=== PATIENT | female | born 1975 | race Caucasian/White ===

== ENCOUNTER 2024-10-25 08:37 | Outpatient (AMB) | payer OTHER, SELFPAY ==
--- OUTSIDE RECORDS SUMMARY | 2020-03-11 04:55 | XMS_ITS | Continuity of Care Document ---
Author Organization [facility] Address [address] [place] [address] Phone Care Team Providers Care Sql Server Bi Developer Name Role Phone No Information Unavailable Unavailable Medications Medication Instructions Dosage Effective Dates (start - stop) Status Comments Zithromax 250 mg Tab Use as directed. - Active Paxil 10 mg Tab Take one tablet by mouth daily. - Active Nasacort AQ 55 mcg Nasal [place] Aerosol Inhale two times via nostril daily - Active VENTOLIN 90MCGAEROSOL Inhale two times b y mouth every six hours - Active Claritin 10 mg Tab Take one tablet by mouth as needed. - Active Advance Directives Directive Yes / No Effective Date File Name No Information Encounters Encounter Description Practice Location Reason(s) For Visit Diagnoses Date Provider Providers Copied on Encounter Medical [facility], [address], [place], [place], [id number] , tel: [phone] No Information 0 No Information Medical [facility], [address], [place], [place], [id number] , tel: [phone] [place] [facility] No Information 4 V[address]quez Mor. [address], [place], [place], [id number], [place]. tel:[phone] Medical [facility], [address], [place], [place], [id number] , tel: [phone] [place] [facility] SINUSITIS, MAXILLARY, ACUTE 3 V[address]quez Mor. [address], [place], [place], [id number], [place]. tel:[phone] Medical [facility], [address], [place], [place], [id number] , [place] tel: [phone] [facility] ASTHMA, INTRINSICALLERGIC RHINITIS DUE TO POLLEN [address] 3 Kathie Juares. [address] [facility] [address], [place], [place], [id number], [place]. tel:[phone] Family History Family Member Type Diagnosis Age At Onset No Information Payers Payer name Insurance type Covered libertarian ID Authoriza tion(s) No Information Social History [...]
--- NOTE | 2024-10-25 08:39 | A.OFFPC_ITS ---
Vital Signs 10/25/24 08:48 Height 6 ft 1 in Weight 226 lb BMI 29.8 BP 104/67 Blood Pressure Location Rt brachial Position Sitting Respiration 12 Pulse 65 Pulse Source Pulse Oximeter Temp 97.2 F Temp Source Oral Pulse Oximetry (%) 100 Oxygen Delivery Method Room Air Intake Visit Reasons: Medication refill Intake Note: New patient to establish care and also patient needs refill on meds. Health Physics Technician Required: No Allergies No Known Allergies Allergy (Verified 10/25/24 08:40) Medication List - Last Reviewed 10/25/24 by Jewels Gipson MA amitriptyline 25 mg PO BEDTIME atomoxetine 100 mg PO QAM budesonide-formoterol 80-4.5 mcg/actuation 2 puffs inhalation ONCE PRN estradiol (Lyllana) 1 patch topical 2XW nebivolol 20 mg PO DAILY nebivolol 20 mg PO DAILY progesterone micronized 100 mg PO BEDTIME sumatriptan succinate take 1 tab at onset of headache; if no relief, may repeat 1 tab after at least 2 hrs; max = 2 tabs/24 hrs PO trazodone 50 mg PO BEDTIME tretinoin 0.1% 1 appl topical BEDTIME Tobacco use date assessed: 10/25/24 Dental Screening Dental Screen Date: 10/25/24 Did you have a dental visit in the last 12 months?: Yes Did you have a dental problem in the last 6 months where you did not have access to dental care?: No Was dental information given to patient?: Patient has dentist HPI HPI Comments History of Present Illness Details 49 y/o F with migraines, HTN, Asthma, AD D, insomnia, perimenopause, IBS, perimenopause Social: , 1 child son age 16 Family history: melanoma (mother), polyps (father); Health Maintenance Colon referred to [facility] today Mammo DEXA Pap referred to [facility] FIELD SERVICE SUPERVISOR today [facility] FIELD SERVICE SUPERVISOR Here today to [facility], No records. [facility] Asthma well controlled. Exercise induced. ADD on Staterra well controlled Migraines hormone related; better in perimenopause. When has periods (current, last one 03/2024), uses Sumatriptin with good relief. Insomnia uses trazadone IBS - using amitriptyline to control Perimenopause - on HRT. Using online MD for this. + improvement in Sx. At 10am sweats buckets w/o hot flashes, lasts 1 hour, then stops. HRT did not help or change sx. Wonders about thyroid. Worried about Raynauds, as in winter and cold sz, toes and fingers turn white and blue, tip of nose too; tingling; uses heat, hats, etc. Worse in the last year. Admits to chronic poor circulation, active w/ Cards, states vascular testing done of BLE and states normal. She takes Nebivolol for this. 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 When stands becomes tachy and feels like going to black out. + hypermobility In between fingers on R hand 06/2024 was lifting something overhead and felt a pop between index and middle finger, in her hand, she developed bruising, swelling and pain in this area. While the sx have improved she cont w/ swelling and discoloration in this area. R hand dominant Always has swollen hands all of the time, this is new. Unrelated to this injury. Past esophageal yeast infection treated with long-term fluconazole. Review of Systems - Cardiovascular: Reports fast heart rat e; Denies heart attacks. - Respiratory: Reports asthma with exert ion; Denies frequent asthma attacks. - Neurological: Reports migraines, now r educed; Reports dizziness upon standing. - Musculoskeletal: Reports joint hypermo bility, recurrent swelling, and pain in the hand; Denies major joint dislocations. - Gastrointestinal: Reports IBS; Denies current significant abdominal pain. - Endocrine: Reports irregular sweating episodes. - Dermatologic: Reports skin smoothness; Denies recent rashes. - Hematologic/Lymphatic: Denies known an emia. Physical Exam General: Well developed, well nourished, in no acute distress. Appears stated age. Marfanoid habitus Head: Normocephalic, atraumatic. Eyes: Pupils are equal, round and reactive to light and accommodation. Conjunctivae are clear. Lungs: Clear to auscultation bilaterally. No rales, rhonchi or wheeze noted. Good air flow in all hester. Heart: Regular rate and rhythm. No murmurs, click, rubs or gallops are noted. Tachycardic w/ sitting to standing Musculoskeletal: R hand neurovasc intact has swell Noted hypermobility in joints. Pulses: Peripheral pulses are equal and palpable bilaterally. Feet dusky w/ dependence. Extremities: No clubbing, cyanosis nor edema is noted. Psych: Mood and affect appropriate. Skin: Diaphoretic, Smooth, doughy Results: Pending Discussion Notes I discussed the likely presence of ADHD and confirmed ongoing Strattera therapy. For asthma management, the continuation of current inhaler therapy was verified. The patient?s history of migraine headaches was assessed, noting reduction during non-menopause periods, with ongoing use of sumatriptan as needed. For miguelina-menopausal symptoms, plans include confirming thyroid function due to persistent sweating. Connective tissue disoder was considered; a referral for evaluation was discussed given symptoms. Concerning circulation issues and potential orthostatic tachycardia, I recommended a follow-up with specialists. Plans for Raynaud's investigation were made. My hand examination prompted an x- ray referral and possible hand specialist consultation. Routine dermatological and gastroenterological surveillance were confirmed, given family history. All current medications were reconciled, and referrals for the continuity of p sychiatric and dermatological care were arranged. Assessment and Plan 1. ADHD - Continue Strattera; psychiatry referra l. 2. Asthma - Maintain inhaler regimen. 3. Hypertension - Continue Nebivolol. 4. PeriMenopausal Symptoms - Thyroid assessment; continue HRT w/ on line MD made aware [facility] FIELD SERVICE SUPERVISOR Does not manage this. 5. R Hand Pain - X-ray; Hand specialist referral. Referrals placed as requested; med refills sent. Labs ordered. Get records for review. Patient Instructions - Continue taking all prescribed medicat ions as directed. - Schedule and attend specialist appoint ments for connective tissue evaluation, hand specialist consultation, and dermatology check-up. - Report any worsening of symptoms or ne w symptoms promptly. - Use patient portal for any questions o r concerns between visits. RTO 8-12 weeks to cont to est care/ fu Consent Patient was informed and verbally consented to the use of an ambient scribe for clinic note documentation during this visit. Total time spent caring for the patient today was 60 minutes. This includes time spent before the visit reviewing the chart, time spent during the visit, and time spent after the visit on documentation, reviewing laboratory results, diagnostic imaging, medications, performing a medically necessary evaluation, counseling on diagnoses, care coordination, ordering appropriate tests, ordering appropriate medications, review of tests performed by other providers, reporting test results with the patient, communication with other healthcare providers. [facility] Medical History (Updated 10/25/24 @ 15:05 by Samia Park [facility]) Hx of mammogram (~2023) IBS (irritable bowel syndrome) ADD (attention deficit disorder) Migraines Asthma Surgical History (Updated 10/25/24 @ 08:53 by Jewels Gipson MA) Hx of colonoscopy (~2022) Hx of appendectomy Family History (Updated 10/25/24 @ 08:55 by Jewels Gipson MA) Mother Asthma Cardiovascular disease Thyroid disorder Skin cancer (melanoma) Substance abuse Father HTN (hypertension) Lung cancer Social History (Updated 10/25/24 @ 08:51 by Jewels Gipson MA) Household Members: Spouse and Children Housing: House Are you a primary customer care consultant to a significant other at home: Yes Do you presently have visiting nurse or other home services: No Alcohol intake: never Patient Tobacco Use Status: Never used Tobacco e-Cigarette/Vaping Use: Never Used Second Hand Smoke Exposure: No Current occupational status: employed 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 1. Little interest or pleasure in doing things: not at all 2. Feeling down, depressed, or hopeless: not at all 3. Trouble falling or staying asleep, or sleeping too much: not at all 4. Feeling tired or having little energy: not at all 5. Poor appetite or overeating: not at all 6. Feeling bad about yourself - or that you are a failure or have let yourself or your family down: not at all 7. Trouble concentrating on things, such as reading the newspaper or watching television: not at all 8. Moving or speaking so slowly that other people could have noticed. Or the opposite - being so fidgety or restless that you have been moving around a lot more than usual: not at all 9. Thoughts that you would be better off or of hurting yourself in some way: not at all Total score: 0 Depression Screening Interpretation: Negative Depression Screening Done: Yes 94113 - PHQ-9 Billing: Yes Source: Developed by Drs. Ever Cherry, Maria Fernanda Maurer, Levy Sauceda and colleagues, with an educational ambar from [employer]. Thrive Questionnaire Date Thrive assessed: 10/25/24 I am a: Patient What is your living situation today?: I have a steady place to live Within the past 12 months, did the food you bought not last and you didn't have the money to get more?: Never true Within the past 12 months, did you worry whether your food would run out before you got money to buy more?: Never true Do you have trouble paying for medicines?: No Do you have trouble getting transportation to medical appointments?: No Do you have trouble paying your heating and electricity bill?: No Do you have trouble taking care of your child, family member or friend?: No Do you have trouble with day-to-day activities such as bathing, preparing meals, shopping, managing finances, etc.?: No Are you currently unemployed and looking for a job?: No Are you interested in more education?: No Please select the resources that you would like help with: None Currently or been in a relationship where the following occur: No concerns reported THRIVE Score: 0 AUDIT C Alcohol Use Questionnaire (AUDIT-C) 1. How often do you have a drink containing alcohol?: Never 3. How often do you have six or more drinks on one occasion?: Never Total Score: 0 Score Reviewed/Action Taken: Yes THOMAS-7 AMB Questionnaire THOMAS-7 Date THOMAS - 7 assessed: 10/25/24 Feeling nervous, anxious, or on edge: 0 = Not at all Not being able to stop or control worryin = Not at all Worrying too much about different things: 0 = Not at all Trouble relaxin = Not at all Being so restless that it is hard to sit still: 0 = Not at all Becoming easily annoyed or irritable: 0 = Not at all Feeling afraid as if something awful might happen: 0 = Not at all Total THOMAS-7 score (0-4 normal; 5-9 mild; 10-14 moderate; 15-21 severe): 0 Source: Developed by Maria Fernanda Regalado, Levy Sauceda and colleagues, with an educational ambar from [employer]. THOMAS-7 Assessment Billing THOMAS-7 Assessment Tool: THOMAS-7 Assessment 80443 ACT Questionnaire In the past 4 weeks, how much of the time did your asthma keep you from getting as much done at work, school or at home?: None of the time During the past 4 weeks, how often have you had shortness of breath?: Not at all During the past 4 weeks, how often did your asthma symptoms wake you up at night or earlier than usual in the morning?: Not at all During the past 4 weeks, how often have you had to use your rescue inhaler or nebulizer medication?: Not at all How would you rate your asthma control during the past 4 weeks?: Completely controlled ACT Interpretation: Negative Score: 25 Physical exam (Primary Care) Vital Signs: Last Vital Signs Temp 97.2 F 10/25/24 08:48 Pulse 65 10/25/24 08:48 Resp 12 10/25/24 08:48 BP 104/67 10/25/24 08:48 Pulse Ox 100 10/25/24 08:48 Oxygen Delivery Method Room Air 10/25/24 08:48 BMI result Body Mass Index 29.8 Tobacco/Smoking Status: Tobacco use Status Tobacco use date assessed 10/25/24 10/25/24 08:42 Patient Tobacco Use Status Never used Tobacco 10/25/24 08:51 e-Cigarette/Vaping Use Never Used 10/25/24 08:51 PHQ-9: PHQ-9 Score PHQ-9: Total score 0 10/25/24 14:32 Depression Screening Interpretation: Negative Thrive Assessment: Date of Thrive Assessment Date Thrive assessed 10/25/24 10/25/24 08:42 Currently or been in a relationship where the following occur: No concerns reported Coding Level of Care Code New Pt Level 5 (06833) Complex EM visit Add On G2211 Diagnoses Encounter to establish care Z76.89 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 POTS (postural orthostatic tachycardia syndrome) G90.A Marfanoid habitus R29.91 Raynaud's phenomenon without gangrene I73.00 Raynaud?s-associated gangrene presence: without gangrene Tall stature R29.898 Laboratory exam ordered as part of routine general medical examination Z00.00 Attention or concentration deficit R41.840 Attention deficit type: attention or concentration deficit Family history of melanoma Z80.8 Irritable bowel syndrome with both constipation and diarrhea K58.2 Irritable bowel syndrome type: with both diarrhea and constipation Esophageal yeast infection B37.81 Tetanus, diphtheria, and acellular pertussis (Tdap) vaccination declined Z28.21 Swelling of right hand M79.89 Mild intermittent asthma in adult without complication J45.20 Additional Codes Asthma Control Questionnaire - ACT Interpretation: Negative ([id number]) THOMAS-7 Assessment Billing - THOMAS-7 Assessment Tool: THOMAS-7 Assessment 41894 ([id number]) PHQ-9 - 50482 - PHQ-9 Billing: Yes ([id number]) Assessment & Plan Assessment & Plan (1) Encounter to establish care: Code(s): Z76.89 - Persons encountering health services in other specified circumstances (2) Hypermobile joints: Code(s): M24.9 - Joint derangement, unspecified Category: Medical (3) POTS (postural orthostatic tachycardia syndrome): Code(s): G90.A - Postural orthostatic tachycardia syndrome [POTS] Category: Medical (4) Marfanoid habitus: Code(s): R29.91 - Unspecified symptoms and signs involving the musculoskeletal system Category: Medical (5) Raynaud's phenomenon: Code(s): I73.00 - Raynaud's syndrome without gangrene Category: Medical Qualifiers: Raynaud?s-associated gangrene presence: without gangrene Qualified Code(s): I73.00 - Raynaud's syndrome without gangrene (6) Tall stature: Code(s): R29.898 - Other symptoms and signs involving the musculoskeletal system Category: Medical (7) Laboratory exam ordered as part of routine general medical examination: Code(s): Z00.00 - Encounter for general adult medical examination without abnormal findings Category: Medical (8) ADD (attention deficit disorder): Code(s): F98.8 - Other specified behavioral and emotional disorders with onset usually occurring in childhood and adolescence Category: Medical Qualifiers: Attention deficit type: attention or concentration deficit Qualified Code(s): R41.840 - Attention and concentration deficit (9) Family history of melanoma: Code(s): Z80.8 - Family history of malignant neoplasm of other organs or systems Category: Medical (10) IBS (irritable bowel syndrome): Code(s): K58.9 - Irritable bowel syndrome, unspecified Category: Medical Qualifiers: Irritable bowel syndrome type: with both diarrhea and constipation Qualified Code(s): K58.2 - Mixed irritable bowel syndrome (11) Esophageal yeast infection: Code(s): B37.81 - Candidal esophagitis Category: Medical (12) Tetanus, diphtheria, and acellular pertussis (Tdap) vaccination declined: Code(s): Z28.21 - Immunization not carried out because of patient refusal Category: Medical (13) Swelling of right hand: Code(s): M79.89 - Other specified soft tissue disorders Category: Medical (14) Mild intermittent asthma in adult without complication: Code(s): J45.20 - Mild intermittent asthma, uncomplicated Category: Medical Plan . Orders: Orders Complete Blood Count no Diff Today Z00.00 - Encounter for general adult medical examination without abnormal findings Ferritin Today Z00.00 - Encounter for general adult medical examination without abnormal findings Hemoglobin A1c Today Z00.00 - Encounter for general adult medical examination without abnormal findings IRON PROFILE Today Z00.00 - Encounter for general adult medical examination without abnormal findings Microalbumin, Random (w Creat) Today Z00.00 - Encounter for general adult medical examination without abnormal findings TSH reflex Free T4 Today Z00.00 - Encounter for general adult medical examination without abnormal findings Vitamin B12 and Folate Today Z00.00 - Encounter for general adult medical examination without abnormal findings Comprehensive Met. Panel Today Z00.00 - Encounter for general adult medical examination without abnormal findings Lipid Panel Today Z00.00 - Encounter for general adult medical examination without abnormal findings Vitamin D 25-OH Total Today Z00.00 - Encounter for general adult medical examination without abnormal findings XR hand RT min 3V Today M79.89 - Other specified soft tissue disorders Referrals Hand Surgery Referral M79.89 - Other specified soft tissue disorders Rheumatology Referral G90.A - Postural orthostatic tachycardia syndrome [POTS], I73.00 - Raynaud's syndrome without gangrene, M24.9 - Joint derangement, unspecified, R29.898 - Other symptoms and signs involving the musculoskeletal system, R29.91 - Unspecified symptoms and signs involving the musculoskeletal system Psychiatry Referral F98.8 - Other specified behavioral and emotional disorders with onset usually occurring in childhood and adolescence Dermatology Referral Z80.8 - Family history of malignant neoplasm of other organs or systems Gastroenterology Referral B37.81 - Candidal esophagitis, K58.9 - Irritable bowel syndrome, unspecified, Z12.11 - Encounter for screening for malignant neoplasm of colon PACS ADMINISTRATOR Referral Z12.4 - Encounter for screening for malignant neoplasm of cervix Medications: New albuterol sulfate 90 mcg/actuation (Ventolin HFA) 2 puffs inhalation Q6H PRN 6.7 grams 2RF shortness of breath or wheezing amitriptyline 25 mg PO BEDTIME 90 tabs 2RF budesonide-formoterol 80-4.5 mcg/actuation 2 puffs inhalation ONCE 10.2 grams 12RF trazodone 50 mg PO BEDTIME 90 tabs 2RF atomoxetine 100 mg PO QAM 90 caps 2RF nebivolol 20 mg PO DAILY 90 tabs 2RF sumatriptan succinate take 1 tab at onset of headache; if no relief, may repeat 1 tab after at least 2 hrs; max = 2 tabs/24 hrs PO 9 tabs 12RF Patient Instructions: Walk-In Care (Urgent Care): We Make it Easy Walk-in for urgent medical issues such as: ? Seasonal Allergies ? Insect Bites ? Cough ? Diarrhea ? Acute Asthma Attacks ? Back, Knee or Joint Pain ? Ear Infection ? Fever without a Rash ? Headaches ? Nausea ? [place] Eye, Rash or Skin Irritation ? Sore Throat ? Sports Physicals ? Vomiting Most insurances are accepted. Patients do not need to be part of the [facility] to seek care at the walk-in clinic. Locations [facility] , [place] [address] ? [phone] [facility] [place] [facility] in [place] provides services to ages 18 and over. Open Thursday-Thursday: 8 a.m. to 5 p.m. and Thursday: 9 a.m. to 3 p.m.* *Hours may vary due to staffing availability. To confirm Walk-In Care hours in [place], please call [phone]. [address] [place] [address] ? [phone] [facility] [place] [facility] [place] provides services to ages 12 and over. Open Thursday-Thursday: 8 a.m. to 5 p.m. Hours may vary due to staffing availability. To confirm Walk-In Care hours in [place], please call [phone]. LABORATORY SERVICES: [facility] Lab ? Primary Location [address] [place] [address] Thursday through Thursday 6:00 AM ? 5:00 PM Thursday 7:00 AM ? 11:00 AM* [phone] The [facility] Lab is centrally located near the front entrance of the [facility] for easy outpatient access. Convenient parking is provided for outpatients. *Hours may vary due to staffing availability. To confirm Laboratory hours for any location, please call [phone]. Offsite Location For your convenience, we offer offsite laboratory draw stations at the following locations: [address] [place] [address] ? [address], [address] Thursday through Thursday 7:30 AM ? 1:00 PM* [phone] *Hours may vary due to staffing availability. To confirm Laboratory hours for any location, please call [phone]. [place] ? [address] Thursday through Thursday 6:00 AM ? 3:30 PM* Thursday 6:30 AM ? 3 PM* [phone] *Hours may vary due to staffing availability. To confirm Laboratory hours for any location, please call [phone] [place] [address] Thursday through Thursday 7:30 AM ? 4:00 PM* [phone] *Hours may vary due to staffing availability. To confirm Laboratory hours for any location, please call [phone] [place] [address] Thursday through 9:00 AM ? 4:00 PM* *Hours may vary due to staffing availability. To confirm Laboratory hours for any location, please call [phone]. Appointments are not necessary. Walk-ins are welcome. Like all the departments throughout the [facility], our Lab undergoes frequent reviews to ensure the quality and accuracy of test results, and our staff takes special pride in its status as a nationally accredited facility. Patient Portal: ONE PATIENT. ONE RECORD. BETTER CARE. [facility] has a fully integrated, cutting- edge mobile electronic health information system that has revolutionized the way we care for our patients and manage our organization. This system improves communication and coordination enabling us to provide safe, higher-quality care, and an overall positive experience for staff and patients. Our first priority, as always, is to deliver the highest quality care possible. The system is running in the background supporting that priority. This portal is for all [facility] services and practices. If you are experiencing any technical difficulties with enrolling or logging into the Patient Portal please complete the [facility] Patient Portal Technical Support Form. [facility] now offers a new secure on-line interactive tool for patients to review their health information ? ?Patient Portal. This interactive web portal will enable patients and their families to take an active role in their care by providing easy, secure access to their health information via the internet. The Patient Portal provides patients with instant access to their health information, including laboratory results, medications, allergies, demographic information, visit history, and more. In addition to managing their own care, parents and health care proxies with authorized consent will appreciate the ability to access the records of those individuals for whom they provide care. Please note: if you wish to gain access (Proxy) to another patient?s portal, you will be required to come to the Medical Records Department in person at [facility]. Both the patient giving proxy access and the proxy will need to provide photo identification and complete the appropriate authorization. The Patient Portal also allows track their appointments online. The [facility] Patient Portal also saves patients time by allowing them to submit updates to their demographic and contact information prior to their visits. Portal email notifications will also alert patients to any new activity on their portal, such as test results and new appointments. In order to initially enroll in the [facility] Patient Portal, you will need to enter some required information including the following: * your [facility] Medical Record number * your personal home email address * name * date of Please note: In order to enroll in the [facility] Patient Portal, we need to have your email address on file in your electronic medical record. ?The email address needs to be specific for one person (yourself) in order for your Portal enrollment to be successful. ?You can update your email address in person with our Registration staff when you are registering for a hospital visit. ?Otherwise, you will need to come to the Health Information Management (Medical Records) Department at [facility]. ?We are open from Thursday ? Thursday from 7:30 a.m. ? 4:30 p.m. ?You will be required to present a photo id. Once you have successfully enrolled in the Patient Portal, you will receive a one-time user id and password for the Portal, sent to your email address. ?This will allow you to log into the Patient Portal within 99 hrs and reset your own logon id and password, and define personal security questions. ?Once your permanent login and password have been set, you can log into the [facility] Patient Portal at any time via the blue button above or from the Portal Logon button on any page of the [facility] website. [facility] and [facility] encourage all of our patients to enroll in Patient Portal as it presents a valuable opportunity for patients and their families to actively participate in their care and stay healthy Welcome to [facility]. ?We look forward to working with you.
[2024-10-25 08:48] VITALS: BP 104/67; PULSE 65; RESP 12; TEMP 36.2; O2SAT 100; BMI 29.8
== END 2024-10-25 09:30 | disposition home or self-care (01) ==
LOC: HO.HMCFM 08:37
PROVIDERS: PCP Nurse Practitioner Family; Visit Provider Nurse Practitioner Family
DX: M24.9 Joint derangement, unspecified (principal); Z76.89 Persons encountering health services in other specified circumstances; G90.A Postural orthostatic tachycardia syndrome [POTS]; B37.81 Candidal esophagitis; I73.00 Raynaud's syndrome without gangrene; R29.91 Unspecified symptoms and signs involving the musculoskeletal system; R29.898 Other symptoms and signs involving the musculoskeletal system; Z00.00 Encounter for general adult medical examination without abnormal findings; R41.840 Attention and concentration deficit; Z80.8 Family history of malignant neoplasm of other organs or systems; K58.2 Mixed irritable bowel syndrome; Z28.21 Immunization not carried out because of patient refusal

== ENCOUNTER → 2024-10-25 08:37 | Outpatient (BNVA) | payer OTHER, SELFPAY | PROVIDERS: PCP Nurse Practitioner Family; Visit Provider Nurse Practitioner Family | DX: Z00.00 Encounter for general adult medical examination without abnormal findings (principal); G43.909 Migraine, unspecified, not intractable, without status migrainosus; I10 Essential (primary) hypertension; F98.8 Other specified behavioral and emotional disorders with onset usually occurring in childhood and adolescence; G47.00 Insomnia, unspecified; K58.9 Irritable bowel syndrome, unspecified; M79.641 Pain in right hand; M24.9 Joint derangement, unspecified; G90.4 Autonomic dysreflexia; I73.00 Raynaud's syndrome without gangrene; R29.898 Other symptoms and signs involving the musculoskeletal system; R41.840 Attention and concentration deficit; K58.2 Mixed irritable bowel syndrome; B37.81 Candidal esophagitis; M79.89 Other specified soft tissue disorders; J45.20 Mild intermittent asthma, uncomplicated; Z76.89 Persons encountering health services in other specified circumstances; Z80.8 Family history of malignant neoplasm of other organs or systems | CPT/HCPCS: 96127; 96160 ==

== ENCOUNTER 2024-10-25 09:53 | Outpatient (REF) | payer OTHER, SELFPAY ==
[2024-10-25 11:35] LABS: Hematocrit 39.1 % (37.0-47.0); Hemoglobin 13.2 g/dl (12.0-16.0); Mean Corpuscular HGB Conc 33.8 g/dl (31.0-35.0); Mean Corpuscular Volume 91.8 fL (80.0-98.0); Mean Platelet Volume 10.4 fL (9.4-12.3); Platelet Count 331 X10*3/uL (160-400); Red Blood Count 4.26 X10*6/uL (4.20-5.50); Red Cell Distribution Width 12.6 % (11.0-16.0); White Blood Count 7.4 X10*3/uL (4.8-10.8)
[2024-10-25 11:42] LABS: Estimated Average Glucose 100 mg/dL; Hemoglobin A1c % 5.1 % (<6.0); Total Hemoglobin (HGBA1C) 3436.5657 umol/L
[2024-10-25 12:02] LABS: Alanine Aminotransferase 41 U/L (0-31); Albumin Level 4.6 g/dL (3.5-5.0); Alkaline Phosphatase 63 U/L (39-117); Anion Gap 12 (12-20); Aspartate Amino Transferase 36 U/L (5-31); Bilirubin Total 0.7 mg/dL (0.0-1.0); Blood Urea Nitrogen 15 mg/dL (9-16); Calcium 9.7 mg/dL (8.4-10.2); Carbon Dioxide 27 mmol/L (22-29); Chloride 104 mmol/L (96-108); Cholesterol 203 mg/dL (<200); Estimated Glomerular Filt Rate > 60; Glucose Random 79 mg/dL (60-115); HDL Cholesterol 60 mg/dL (>40); Iron 136 mcg/dL (30-160); LDL Cholesterol Calculated 121 mg/dL (<100); Percent Iron Saturation 44 % (15-50); Potassium 4.1 mmol/L (3.3-5.1); Sodium 139 mmol/L (135-145); Total Iron Binding Capacity 310 mcg/dL (228-428); Total Protein 7.4 g/dL (6.5-8.0); Triglycerides 113 mg/dL (<150); Unsaturated Iron Binding 174 ug/dL
[2024-10-25 12:23] LABS: Ferritin 104 ng/mL (10-250); TSH reflex Free T4 2.52 uIU/mL (0.32-4.0); Vitamin D 25-OH Total 52.7 ng/mL (>30)
[2024-10-25 12:29] LABS: Folate 10.5 ng/mL (> or = 4.0); Vitamin B12 340 pg/mL (200-900)
[2024-10-25 15:10] LABS: Microalbumin Urine < 5.0 mg/L
== END 2024-10-25 09:54 | disposition home or self-care (01) ==
LOC: HO.WFDLDS 09:53
PROVIDERS: Visit Provider Nurse Practitioner Family
DX: Z00.00 Encounter for general adult medical examination without abnormal findings (principal); Z13.0 Encounter for screening for diseases of the blood and blood-forming organs and certain disorders involving the immune mechanism; Z13.1 Encounter for screening for diabetes mellitus; Z13.220 Encounter for screening for lipoid disorders; Z13.29 Encounter for screening for other suspected endocrine disorder; Z13.228 Encounter for screening for other metabolic disorders
CPT/HCPCS: 36415; 80053; 80061; 82043; 82306; 82570; 82607; 82728; 82746; 83036; 83540; 84443; 85027

== ENCOUNTER 2024-10-27 11:19 | Outpatient (REF) | payer OTHER, SELFPAY ==
--- OUTSIDE RECORDS SUMMARY | 2020-03-11 04:55 | XMS_ITS | Continuity of Care Document ---
Author Organization [facility] Address [address] [place] [id number] Phone Care Team Providers Care Staff Nurse Icu Resource Team Name Role Phone No Information Unavailable Unavailable Medications Medication Instructions Dosage Effective Dates (start - stop) Status Comments Zithromax 250 mg Tab Use as directed. - Active Paxil 10 mg Tab Take one tablet by mouth daily. - Active Nasacort AQ 55 mcg Nasal [place] Aerosol Inhale two times via nostril daily - Active VENTOLIN 90MCGAEROSOL Inhale two times b y mouth every six hours - Active Claritin 10 mg Tab Take one tablet by mouth as needed. - Active Advance Directives Directive Yes / No Effective Date File Name No Information Encounters Encounter Description Practice Location Reason(s) For Visit Diagnoses Date Provider Providers Copied on Encounter Medical [facility], [address], [place], [place], [id number] , tel: [phone] No Information 0 No Information Medical [facility], [address], [place], [place], [id number] , tel: [phone] [facility] No Information 4 V[address]quez Mor. [address], [place], [place], [id number], [place]. tel:[phone] Medical [facility], [address], [place], [place], [id number] , tel: [phone] [facility] SINUSITIS, MAXILLARY, ACUTE 3 V[address]quez Mor. [address], [place], [place], [id number], [place]. tel:[phone] Medical [facility], [address], [place], [place], [id number] , [place] tel: [phone] [facility] ASTHMA, INTRINSICALLERGIC RHINITIS DUE TO POLLEN [address] 3 Kathie Juares. [address] [facility] [address], [place], [place], [id number], [place]. tel:[phone] Family History Family Member Type Diagnosis Age At Onset No Information Payers Payer name Insurance type Covered alliance party ID Authoriza tion(s) No Information Social History Type Description Quantity Date Captured Comments Alcohol Use Details Unknown Caffeine Use Details Unknown 2 cups per day Tobacco Use Status No Information Smoking Status No Information Sex Female Chief Complaint And Reason For Visit No [...]
--- NOTE | ~2024-10-27 | XR_ITS ---
EXAMINATION: XR HAND, RIGHT CLINICAL INFORMATION: M79.89 - Other specified soft tissue disorders COMPARISON: None available. TECHNIQUE: PA, lateral, and oblique views of the right hand. FINDINGS: Joint spaces are preserved. There are no erosions or osteophytes. No fractures are identified. XR/XR hand RT min 3V IMPRESSION: Unremarkable right hand Electronically signed by: Milo Grubbs MD 10/27/2024 12:41 PM EDT
== END 2024-10-27 11:20 | disposition home or self-care (01) ==
LOC: HO.HHCX 11:19
PROVIDERS: PCP Nurse Practitioner Family; Visit Provider Nurse Practitioner Family
DX: M79.89 Other specified soft tissue disorders (principal)
CPT/HCPCS: 73130

== ENCOUNTER → 2024-10-27 11:31 | Outpatient (BNV) | payer OTHER, SELFPAY | PROVIDERS: PCP Nurse Practitioner Family; Visit Provider Radiology Diagnostic Radiology | DX: M79.89 Other specified soft tissue disorders (principal) | CPT/HCPCS: 73130 ==

== ENCOUNTER 2024-12-15 10:20 | Outpatient (AMB) | payer OTHER, SELFPAY ==
[2024-12-15 10:33] VITALS: BP 110/70; PULSE 84; TEMP 36.4; O2SAT 98; BMI 30.4
--- NOTE | 2024-12-15 10:33 | AM.OFFWIN_ITS ---
Intake Vital Signs 12/15/24 10:33 Height 6 ft 1 in Weight 230 lb 6 oz BMI 30.4 BP 110/70 Blood Pressure Location Rt brachial Position Sitting Pulse 84 Pulse Source Pulse Oximeter Temp 97.6 F Temp Source Oral Pulse Oximetry (%) 98 Oxygen Delivery Method Room Air Intake Visit Reasons: EP sores in mouth Patient Tobacco Use Status: Never used Tobacco Allergies cephalexin (From Keflex) Allergy (Mild, Verified 12/15/24 10:41) Rash oxycodone Allergy (Mild, Verified 12/15/24 10:41) Rash Do you need a note to return to daycare/school/sports/work: No HPI HPI Comments History of Present Illness Details History of Present Illness - The patient is a 49-year-old female pr esenting with oral lesions. - The patient reports the onset of a sma ll sore on the lower inner lip on Thursday, which has since worsened and multiplied. - She describes a tingling sensation sim ilar to a previous cold sore experienced 33 years ago. - The lesions are localized to the lips, with no infection in the mouth or throat. - The patient denies recent consumption of spicy foods but acknowledges experiencing stress, a known trigger for herpetic outbreaks. - She has not tried anything for the alisa n. - She denies fever, chills, CP, SOB, SALDANA, sore throat, or cough. Physical Exam General: Cooperative, healthy appearing, comfortable, no acute distress and well developed Orientation: Patient oriented x3 Limitations: No limitations Mouth: Multiple small erythematous lesions noted on the inner lower and upper lips. Respiratory: Normal respiratory effort and able to speak in complete sentences. Clear to auscultation bilaterally Cardiovascular: Regular rate and rhythm. Normal S1 and S2 Skin: No rashes or lesions noted Patient was informed and verbally consented to the use of an ambient scribe for clinic note documentation during this visit. [facility], LAT[facility] Medical History (Updated 11/17/24 @ 08:40 by Jewels Gipson MA) HTN (hypertension) Hx of mammogram (~2023) IBS (irritable bowel syndrome) ADD (attention deficit disorder) Migraines Asthma Surgical History (Updated 10/25/24 @ 08:53 by Jewels Gipson MA) Hx of colonoscopy (~2022) Hx of appendectomy Family History (Updated 06/24/25 @ 08:55 by Jewels Gipson MA) Mother Asthma Cardiovascular disease Thyroid disorder Skin cancer (melanoma) Substance abuse Father HTN (hypertension) Lung cancer Social History (Updated 10/25/24 @ 08:51 by Jewels Gipson MA) Household Members: Spouse and Children Both parents involved: No Caregiver staying overnight: No Housing: House Are you a primary transitional care manager to a significant other at home: Yes Do you presently have visiting nurse or other home services: No 75 years or older and lives alone: No Alcohol intake: never Patient Tobacco Use Status: Never used Tobacco e-Cigarette/Vaping Use: Never Used Second Hand Smoke Exposure: No Current occupational status: employed 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 Cognitive needs: No Hearing needs: No Vision needs: Yes (wear glasses) Review of Systems Const All systems reviewed & are unremarkable except as noted in HPI and below Physical Exam Vital Signs: Last Vital Signs Temp 97.6 F 12/15/24 10:33 Pulse 84 12/15/24 10:33 BP 110/70 12/15/24 10:33 Pulse Ox 98 12/15/24 10:33 Oxygen Delivery Method Room Air 12/15/24 10:33 BMI result Body Mass Index 30.4 Assessment & Plan Assessment & Plan (1) Mouth lesion: Code(s): K13.70 - Unspecified lesions of oral mucosa Plan Most likely oral herpes vs cold sore vs canker sore Plan - diet as tolerated - salt water gargles - valtrex 1 gm BID for 7 days - follow up with PCP Medications: New valacyclovir 1,000 mg PO q12h PRN 14 tabs 0RF herpes 7 days Coding Level of Care Code Est Pt Level 3 (83033) Diagnoses Mouth lesion K13.70
--- OUTSIDE RECORDS SUMMARY | 2024-12-15 11:08 | XMS_ITS | Patient Health Record ---
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 Name Role Phone MARIAMA STEEL Unavailable [phone] Allergies Allergen (clinical drug ingredient) Drug/Non Drug Allergy documented on EMR Reaction Allergy Type Onset Date Status Keflex hives Drug Allergy Active oxycodone oxyCODONE HCl hives Drug Allergy Act belkis Reason For Referral No Information Medications Medication SIG (Take, Route, Frequency, Duration) Notes Start Date End Date Status Albuterol Sulfate HFA 108 (90 Base) MCG/ACT 1 puff as needed Inhalation every 4 hrs 04/21/2023 Active Estradiol 0.025 MG/24HR 1 patch to skin Implant Two times a Week Active Advair Diskus 100-50 MCG/ACT 1 puff Inha lation Twice a day 04/21/2023 Active Linzess 145 MCG 1 capsule at least 3 0 minutes before the first meal of the day on an empty stomach Orally Once a day Active Norlyda 0.35 MG 1 tablet Orally Once a day Active Atomoxetine HCl 100 MG 1 capsule Orally Once a day Active Amitriptyline HCl 25 MG 1 tablet at bedt hugo Orally Once a day; Duration: 90 days IBS Active Fluticasone Propionate 50 MCG/ACT SPRAY 1 SPRAY INTO EACH NOSTRIL EVERY DAY; Duration: 30 Active Advair HFA 115-21 MCG/ACT 1 puff Inhalat ion Twice a day 01/28/2023 Active SUMAtriptan Succinate 100 MG TAKE 1 TAB ORALLY AT ONSET OF MIGARINE AND MAY REPEAT A SECOND DOSE IN 2 HOURS IF NEEDED. MAX OF 2 TABS IN 24 HORUS; Duration: 30 Active Albuterol Sulfate HFA 108 (90 Base) MCG/ACT 1 -2 puff as needed Inhalation 10 minutes before physical exertion 01/01/2023 Active Progesterone 100 MG as directed Orally o nce daily Active Advair Diskus 100-50 MCG/ACT 1 puff Inha lation Twice a day 01/29/2023 Active Metoprolol Succinate ER 25 MG TAKE 1 TABLET BY MOUTH EVERY DAY; Duration: 90 Active Immunizations Vaccine Route Administration Date Status Comme nts Influenza, seasonal, injectable, preservative free, 3 yrs and above IM Intramuscular 01/14/2022 Administered Influenza, seasonal, injectable, preservative free, 3 yrs and above IM Intramuscular 01/28/2023 Administered Social History Tobacco Use: Social History Observation Description Date Details (start date - stop date) Never Smoker NA - NA Tobacco Use/Smoking Question Answer Notes Are you a nonsmoker Alcohol Screen (Audit-C) Question Answer Notes Did you have a drink containing alcohol in the p ast year? No Points 0 Interpretation Negative Problems Problem Type SNOMED Code ICD Code Onset Dates Problem Status W/U Status Risk Notes Problem Irritable bowel syndrome characterized by constipation (402808094) Irritable bowel syndrome with constipation (K58.1) Active confirmed Problem Migraine without aura, not refractory (207982879) Migraine without aura and without status migrainosus, not intractable (G43.009) Active confirmed Problem Seasonal allergy (511396375) Seasonal allergies (J30.2) Active confirmed Problem Mild intermittent asthma (727424629) Intermittent asthma without complication, unspecified asthma severity (J45.20) Active confirmed Problem Asthma without status asthmaticus (59253532) Asthma, unspecified asthma severity, unspecified whether complicated, unspecified whether persistent (J45.909) Active confirmed Plan Of Treatment Pending Test Test Name Order Date MAMMOGRAM, SCREENING 04/21/2023 Insurance Providers Payer Name Payer Address Payer Phone Subscriber Number Group Number Insured Name Patient Relationship to Insured Coverage Start Date Coverage End Date [employer] [address] [place] [address] [id number] Cameron Stafford Spouse - patient is the spouse of the insured Medical (General) History Medical History History ICD Code ibs constipation 2015 seasonal alleries tachycardia 2019 holter monitor [facility] Dr Chowdhry next appt 3 weeks wellbutrin iin 20s caused hallucination DONOT prescribe migraine [address] Rollins esophageal primo [address] Calin Prabhakar EGD DR Jiménez Surgical History Surgery Date(Month/Year) appy 1984 breast reduction 1998 polyp removal during colonoscopy 08/24
== END 2024-12-15 11:40 | disposition home or self-care (01) ==
PROVIDERS: PCP Nurse Practitioner Family; Visit Provider Physician Assistant Medical
DX: K13.70 Unspecified lesions of oral mucosa (principal)

== ENCOUNTER 2024-12-22 09:52 | Outpatient (AMB) | payer OTHER, SELFPAY ==
--- OUTSIDE RECORDS SUMMARY | 2023-10-23 09:16 | XMS_ITS ---
Author Organization [facility] Physician Dannie es Billing Info Address [address] [place] [address] Care Team Providers Care Computing Services Director Name Role Phone LISA MCDOWELL [phone] REASON FOR VISIT RX questions Encounters Encounter Location Date Provider Diagnosis [id number] [place] [address] [facility] [address] [place] [address] 10/23/2023 LISA MCDOWELL Plan Of Treatment No Information Progress Notes * Winsome COKERDOB:1975 (48 yo F)Acc No.[id number]:10/23/2023 Patient: Winsome GAINES :1975 A ge:48 Y S ex:Female Address:[address] [place] [phone] * true * Date: Generated for Ashley hwang/Rancho/eTransmitting on: 0 12/22/2024 10:15 AM CDT
--- NOTE | 2024-12-22 09:58 | A.OFFPC_ITS ---
Vital Signs 12/22/24 10:02 Height 6 ft 1 in Weight 232 lb 6 oz BMI 30.7 BP 102/66 Blood Pressure Location Lt brachial Position Sitting Respiration 12 Pulse 76 Pulse Source Pulse Oximeter Temp 97.2 F Temp Source Oral Pulse Oximetry (%) 99 Oxygen Delivery Method Room Air Intake Visit Reasons: 8 - 12 weeks 30 min est care Intake Note: Follow up to establish care. Patient c/o allergies and meds taking is not helping. Specification Manager Required: No Allergies cephalexin (From Keflex) Allergy (Mild, Verified 12/22/24 10:20) Rash oxycodone Allergy (Mild, Verified 12/22/24 10:20) Rash Medication List - Last Reconciled 12/22/24 by Samia Park, CELL FEED DEPARTMENT SUPERVISOR- albuterol sulfate 90 mcg/actuation (Ventolin HFA) 2 puffs inhalation Q6H PRN amitriptyline 25 mg PO BEDTIME atomoxetine 100 mg PO QAM budesonide-formoterol 80-4.5 mcg/actuation 2 puffs inhalation ONCE estradiol (Lyllana) 1 patch topical 2XW nebivolol 20 mg PO DAILY progesterone micronized 100 mg PO BEDTIME sumatriptan succinate take 1 tab at onset of headache; if no relief, may repeat 1 tab after at least 2 hrs; max = 2 tabs/24 hrs PO trazodone 50 mg PO BEDTIME tretinoin 0.1% 1 appl topical BEDTIME valacyclovir 1,000 mg PO q12h PRN 7 days Tobacco use date assessed: 12/22/24 Dental Screening Dental Screen Date: 12/22/24 Did you have a dental visit in the last 12 months?: Yes Did you have a dental problem in the last 6 months where you did not have access to dental care?: No Was dental information given to patient?: Patient has dentist HPI HPI Comments History of Present Illness Details 49 y/o F with migraines, HTN, Asthma, AD D, insomnia, perimenopause, IBS, perimenopause s/p sinus surgery Social: , 1 child son age 16 Family history: melanoma (mother), polyps (father) Health Maintenance Colon 2022 [facility] [place] GI referral Pap 2022 [facility] [place] [employer]ER referral Mammo 08/2023 Colon referred to [facility] [place] today DEXA NA perimenopause Tdap 12/2024 [facility] playing phone tag Derm Psych has had 2 appts ENGRAVINGS POLISHER pending Hand appt this month Here today for CPE and FU: [facility] [place] : records rec'd and reviewed Asthma well controlled. Exercise induced. ADD on Staterra well controlled Migraines hormone related; better in perimenopause. When has periods (current, last one 03/2024), uses Sumatriptin with good relief. Insomnia uses trazadone IBS - using amitriptyline to control Perimenopause - on HRT. Using online MD for this. + improvement in Sx. At 10am sweats buckets w/o hot flashes, lasts 1 hour, then stops. HRT did not help or change sx. Wonders about thyroid. Worried about Raynauds, as in winter and cold sz, toes and fingers turn white and blue, tip of nose too; tingling; uses heat, hats, etc. Worse in the last year. Admits to chronic poor circulation, active w/ Cards, states vascular testing done of BLE and states normal. She takes Nebivolol for this. 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 When stands becomes tachy and feels like going to black out. + hypermobility In between fingers on R hand 06/2024 was lifting something overhead and felt a pop between index and middle finger, in her hand, she developed bruising, swelling and pain in this area. While the sx have improved she cont w/ swelling and discoloration in this area. Referral to Rheum out of network; she will call insurance and see who's covered and send me message R hand dominant Always has swollen hands all of the time, this is new. Unrelated to this injury. Seeing hand MD this month Past esophageal yeast infection treated with long-term fluconazole. Allergies uncontrolled w/ saline, flonase and claritin, sensitive to other antihistamines and singulair HSV outbreak tx @ walk in w/ acyclovir Has cataracts, wears glasses; blurred visin; poor night vision. Review of Systems - Cardiovascular: Reports fast heart rat e; Denies heart attacks. - Respiratory: Reports asthma with exert ion; Denies frequent asthma attacks. - Neurological: Reports migraines, now r educed; Reports dizziness upon standing. - Musculoskeletal: Reports joint hypermo bility, recurrent swelling, and pain in the hand; Denies major joint dislocations. - Gastrointestinal: Reports IBS; Denies current significant abdominal pain. - Endocrine: Reports irregular sweating episodes. - Dermatologic: Reports skin smoothness; Denies recent rashes. - Hematologic/Lymphatic: Denies known an emia. Physical Exam General: Well developed, well nourished, in no acute distress. Appears stated age. Marfanoid habitus Head: Normocephalic, atraumatic. Eyes: Pupils are equal, round and reactive to light and accommodation. Conjunctivae are clear. Ears: TMs clear AU, EACS WNL Nose: Clear d/c turbinates pale and edematous bilat Mouth: + PND There are no ulcers or lesions noted. No inflammation Neck: Supple, no adenopathy or thyromegaly. Breast: Edu on SBE Lungs: Clear to auscultation bilaterally. No rales, rhonchi or wheeze noted. Good air flow in all hester. Heart: Regular rate and rhythm. No murmurs, click, rubs or gallops are noted. Tachycardic w/ sitting to standing Abdomen: Bowel sounds present in all quadrants. The abdomen is soft, nontender, with no masses or organomegaly noted. No hernias are noted. : Deferred. Reviewed recommendations for routine ENGRAVINGS POLISHER Musculoskeletal: R hand neurovasc intact has swell Noted hypermobility in joints. Pulses: Peripheral pulses are equal and palpable bilaterally. Feet dusky w/ dependence. Extremities: No clubbing, cyanosis nor edema is noted. Neurologic: Gait and station normal. Cranial Nerves 2-12 intact. Motor strength grossly symmetrical and intact. No sensory loss. Balance normal. Psych: Mood and affect appropriate. Skin: Diaphoretic, Smooth, doughy Discussion Notes During the visit, I reviewed the patient's need for a tetanus vaccination due to its interval history and offered reassurance that no systemic adverse reactions are anticipated except localized discomfort. We addressed the patient?s resolved oral blisters following Valacyclovir administration, confirming the effective resolution of symptoms. I have instructed the patient to confirm network eligibility for specialist care due to unresolved rheumatology appointments, while further managing gastrointestinal symptoms through gastroenterology referral processes. We deliberated potential benefits of allergy skin testing and immunotherapy options for chronic sinus issues. Eye health concerns, particularly cataract development impacting daily life, directed us towards a referral for comprehensive eye examination. Wellness efforts continue with due mammography and future bone density evaluations to ensure health preservation. Patient was given time to ask questions. All questions were answered to their satisfaction. Plan Cont all meds Attend all appts Increase claritin to twice per day Allergy referral for allergy shots Tdap today Mammo ordered Optho referral for cataracts RTO 6 months w/ labs, routine fu, sooner PRN Consent Patient was informed and verbally consented to the use of an ambient scribe for clinic note documentation during this visit. An additional 30 minutes was spent addressing the problem(s) noted at todays visit. This includes time spent before the visit reviewing the chart, time spent during the visit, and time spent after the visit on documentation reviewing laboratory results, diagnostic imaging, medications, performing a medically necessary evaluation, counseling on diagnoses, care coordination, ordering appropriate tests, ordering appropriate medications, review of tests performed by other providers, reporting test results with the patient, communication with other healthcare providers. [facility] Medical History (Updated 12/22/24 @ 10:49 by Samia Park [facility]) ADD (attention deficit disorder) Asthma HTN (hypertension) Hx of mammogram (~2023) IBS (irritable bowel syndrome) Migraines Surgical History (Updated 10/25/24 @ 08:53 by Jewels Gipson MA) Hx of appendectomy Hx of colonoscopy (~2022) Family History (Updated 10/25/24 @ 08:55 by Jewels Gipson MA) Mother Asthma Cardiovascular disease Thyroid disorder Skin cancer (melanoma) Substance abuse Father HTN (hypertension) Lung cancer Social History (Updated 10/25/24 @ 08:51 by Jewels Gipson MA) Household Members: Spouse and Children Both parents involved: No Caregiver staying overnight: No Housing: House Are you a primary adult live in caregiver to a significant other at home: Yes Do you presently have visiting nurse or other home services: No 75 years or older and lives alone: No Alcohol intake: never Patient Tobacco Use Status: Never used Tobacco e-Cigarette/Vaping Use: Never Used Second Hand Smoke Exposure: No service: No Current occupational status: employed 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 Current occupational exposures/hazards: No Cognitive needs: No Hearing needs: No Vision needs: Yes (wear glasses) Questionnaire Thrive Questionnaire Date Thrive assessed: 10/25/24 I am a: Patient What is your living situation today?: I have a steady place to live Within the past 12 months, did the food you bought not last and you didn't have the money to get more?: Never true Within the past 12 months, did you worry whether your food would run out before you got money to buy more?: Never true Do you have trouble paying for medicines?: No Do you have trouble getting transportation to medical appointments?: No Do you have trouble paying your heating and electricity bill?: No Do you have trouble taking care of your child, family member or friend?: No Do you have trouble with day-to-day activities such as bathing, preparing meals, shopping, managing finances, etc.?: No Are you currently unemployed and looking for a job?: No Are you interested in more education?: No Please select the resources that you would like help with: None Currently or been in a relationship where the following occur: No concerns reported THRIVE Score: 0 THOMAS-7 AMB Questionnaire THOMAS-7 Date THOMAS - 7 assessed: 10/25/24 Source: Developed by Drs. Ever Cherry, Maria Fernanda Maurer, Levy Sauceda and colleagues, with an educational ambar from [employer]. Physical exam (Primary Care) Vital Signs: Last Vital Signs Temp 97.2 F 12/22/24 10:02 Pulse 76 12/22/24 10:02 Resp 12 12/22/24 10:02 BP 102/66 12/22/24 10:02 Pulse Ox 99 12/22/24 10:02 Oxygen Delivery Method Room Air 12/22/24 10:02 BMI result Body Mass Index 30.7 Tobacco/Smoking Status: Tobacco use Status Tobacco use date assessed 12/22/24 12/22/24 10:04 Patient Tobacco Use Status Never used Tobacco 12/22/24 10:04 e-Cigarette/Vaping Use Never Used 12/22/24 10:04 Thrive Assessment: Date of Thrive Assessment Date Thrive assessed 10/25/24 12/22/24 10:04 Currently or been in a relationship where the following occur: No concerns reported Immunizations Boostrix Tdap 2.5 Lf unit-8 mcg-5 Lf/0.5 mL intramuscular syringe Performing Provider: MONCHO Billings Performing Location: [facility] [place] Family Medicine Administered by: Jewels Gipson MA on 12/22/24 10:48 Dose Route Admin Location Dispensed Lot Number Expiration Date NDC Lieutenant Shift Supervisor 0.5 mL IM Right Deltoid 0.5 mL [id number] 02/21/27 66737-472-60 [employer] Total Dispensed Waste 0.5 mL 0 % VIS Given Date VIS Provided VIS Publication Date 12/22/24 Single Vaccine 20 Eligibility Eligibility Date Funding Source Not [facility] Eligible 12/22/24 Private Coding Level of Care Code Est Pt Level 4 (78429) Est Pt Prev Care 40-64y(58802) Diagnoses Encounter for general adult medical examination without abnormal findings Z00.00 Need for Tdap vaccination Z23 Environmental and seasonal allergies J30.89 Cataract of both eyes, unspecified cataract type H26.9 Cataract type: unspecified Laterality: bilateral Mixed hyperlipidemia E78.2 Hyperlipidemia type: mixed hyperlipidemia Primary hypertension I10 Hypertension type: primary hypertension Assessment & Plan Assessment & Plan (1) Encounter for general adult medical examination without abnormal findings: Onset Date: ~12/22/24 Code(s): Z00.00 - Encounter for general adult medical examination without abnormal findings Category: Medical (2) Need for Tdap vaccination: Code(s): Z23 - Encounter for immunization Category: Medical (3) Environmental and seasonal allergies: Code(s): J30.89 - Other allergic rhinitis Category: Medical (4) Cataract: Code(s): H26.9 - Unspecified cataract Category: Medical Qualifiers: Cataract type: unspecified Laterality: bilateral Qualified Code(s): H26.9 - Unspecified cataract (5) HLD (hyperlipidemia): Code(s): E78.5 - Hyperlipidemia, unspecified Category: Medical Qualifiers: Hyperlipidemia type: mixed hyperlipidemia Qualified Code(s): E78.2 - Mixed hyperlipidemia (6) HTN (hypertension): Code(s): I10 - Essential (primary) hypertension Category: Medical Qualifiers: Hypertension type: primary hypertension Qualified Code(s): I10 - Essential (primary) hypertension Plan . Orders: Orders MM tomosynthesis screening BI Today Z12.31 - Encounter for screening mammogram for malignant neoplasm of breast Lipid Panel 6 Months E78.5 - Hyperlipidemia, unspecified, I10 - Essential (primary) hypertension TDaP Immunization Today Z23 - Encounter for immunization Comprehensive Met. Panel 6 Months E78.5 - Hyperlipidemia, unspecified, I10 - Essential (primary) hypertension Referrals Ophthalmology Referral H26.9 - Unspecified cataract Allergy & Immunology Referral J30.89 - Other allergic rhinitis Patient Instructions: Health screenings for women You should visit your health care provider from time to time, even if you are healthy. The purpose of these visits is to: Screen for medical issues Assess your risk for future medical problems Encourage a healthy lifestyle Update vaccinations and other preventive care services Help you get to know your provider in case of an illness Information Even if you feel fine, you should still see your provider for regular checkups. These visits can help you avoid problems in the future. For example, the only way to find out if you have high blood pressure is to have it checked regularly. High blood sugar and high cholesterol levels also may not have any symptoms in the early stages. A simple blood test can check for these conditions. There are specific times when you should see your provider or receive specific health screenings. The [place] Preventive Services Task Force publishes a list of recommended screenings. Below are screening guidelines for women ages 18 to 39. BLOOD PRESSURE SCREENING Your blood pressure should be checked at least once every 3 to 5 years if: Your blood pressure is in the normal range (top number less than 120 mm Hg and bottom number less than 80 mm Hg) You don't have risk factors for high blood pressure Ask your provider if you need your blood pressure checked more often if: The top number is 120 to 129 mm Hg or the bottom number is 70 to 79 mm Hg You have diabetes, heart disease, kidney problems, are overweight, or have certain other health conditions You have a first-degree relative with high blood pressure You are Black You had high blood pressure during a If the top number is 130 mm Hg or greater or the bottom number is 80 mm Hg or greater, this is considered stage 1 hypertension. Schedule an appointment with your provider to learn how you can reduce your blood pressure. Watch for blood pressure screenings in your area. Ask your provider if you can stop in to have your blood pressure checked. BREAST CANCER SCREENING Experts do not agree about the benefits of breast self-exams in finding breast cancer or saving lives. Talk to your provider about what is best for you. A screening mammogram is not recommended for most women under age 40. Your provider may discuss and recommend mammograms, MRI scans, or ultrasounds if you have an increased risk for breast cancer, such as: A mother or sister who had breast cancer at a young age (most often starting screening earlier than the age the close relative was diagnosed) You carry a high-risk genetic marker CERVICAL CANCER SCREENING Cervical cancer screening should start at age 21 years unless your provider advises otherwise. After the first test: Women ages 21 through 29 should have a Pap test every 3 years. Exoprts do not agree on whether HPV testing is recommended for this age group. Women ages 30 through 65 should be screened with either a Pap test every 3 years or the HPV test every 5 years or both tests every 5 years (called cotesting ). Women who have been treated for precancer (cervical dysplasia) should continue to have Pap tests for 20 years after treatment or until age 65, whichever is longer. If you have had your uterus and cervix removed (total hysterectomy), and you have not been diagnosed with cervical cancer or precancer (high grade cervical neoplasia), you do not need cervical cancer screening. CHOLESTEROL SCREENING Cholesterol screening should begin at: Age 45 for women with no known risk factors for coronary heart disease Age 20 for women with known risk factors for coronary heart disease Repeat cholesterol screening should take place: Every 5 years for women with normal cholesterol levels More often if changes occur in lifestyle (including weight gain and diet) More often if you have diabetes, heart disease, kidney problems, or certain other conditions DIABETES SCREENING You should be screened for diabetes starting at age 35 and then repeated every 3 years if you have no risk factors for diabetes. Screening may need to start earlier and be repeated more often if you have other risk factors for diabetes, such as: You have a first degree relative with diabetes. You are overweight or have obesity. You have high blood pressure, prediabetes, or a history of heart disease. Screening for diabetes should be done if you are planning to become and you are overweight and have other risk factors such as high blood pressure. DENTAL EXAM Go to the dentist once or twice every year for an exam and cleaning. Your dentist will evaluate if you need more frequent visits. EYE EXAM Have an eye exam every 5 to 10 years before age 40. If you have vision problems, have an eye exam every 2 years or more often if recommended by your provider. You should have an eye exam that includes an examination of your retina (back of your eye) at least every year if you have diabetes. IMMUNIZATIONS Commonly needed vaccines include: Flu shot: get one every year. COVID-19 vaccine: ask your provider what is best for you. Tetanus-diphtheria and acellular pertussis (Tdap) vaccine: have one at or after age 19 as one of your tetanus-diphtheria vaccines if you did not receive it as an adolescent. Tetanus-diphtheria: have a booster (or Tdap) every 10 years. Varicella vaccine: receive 2 doses if you never had chickenpox or the varicella vaccine. Hepatitis B vaccine: receive 2, 3, or 4 doses, depending on your exact circumstances. Measles, mumps, and rubella (MMR) vaccine: receive 1 to 2 doses if you are not already immune to MMR. Your provider can tell you if you are immune. Ask your provider about the human papillomavirus (HPV) vaccine if: You have not received the HPV vaccine in the past You have not completed the full vaccine series (you should catch up on this shot) Ask your provider if you should receive other immunizations if you have certain health problems that increase your risk for some diseases such as pneumonia. INFECTIOUS DISEASE SCREENING Women who are sexually active should be screened for chlamydia and gonorrhea up until age 25. Women 25 years and older should be screened for chlamydia and gonorrhea if at high risk. Screening for hepatitis C: All adults ages 18 to 79 should get a one-time test for hepatitis C. people should be screened at every . Screening for human immunodeficiency virus (HIV): All people ages 15 to 65 should get a one-time test for HIV. Depending on your lifestyle and medical history, you may also need to be scre ened for infections such as syphilis and HIV, as well as other infections. PHYSICAL EXAM All adults should visit their provider from time to time, even if they are healthy. The purpose of these visits is to: Screen for disease Assess your risk of future medical problems Encourage a healthy lifestyle Update your vaccinations and other preventive care services Maintain a relationship with a provider in case of an illness Your height, weight, and BMI should be checked at every exam. During your exam, your provider may ask you about: Depression and anxiety Diet and exercise Alcohol and tobacco use Safety issues, such as using seat belts, smoke detectors, and intimate partner violence Your medicines and risk for interactions SKIN SELF-EXAM Your provider may check your skin for signs of skin cancer, especially if you're at high risk, such as if you: Have had skin cancer before Have close relatives with skin cancer Have a weakened immune system OTHER SCREENING Talk with your provider about colon cancer screening if you have a strong family history of colon cancer or polyps, or if you have had inflammatory bowel disease or polyps yourself. Routine bone density screening of women under 40 is not recommended.
[2024-12-22 10:02] VITALS: BP 102/66; PULSE 76; RESP 12; TEMP 36.2; O2SAT 99; BMI 30.7
--- OUTSIDE RECORDS SUMMARY | 2024-12-22 11:15 | XMS_ITS | Patient Health Record ---
Author Organization [facility] Address [address] [address] Care Team Providers Care Student Support Counselor Name Role Phone MARIAMA STEEL Unavailable [phone] Allergies Allergen (clinical drug ingredient) Drug/Non Drug [...] Problem Irritable bowel syndrome characterized by constipation (873402719) Irritable bowel syndrome with constipation (K58.1) Active confirmed Problem Migraine without aura, not refractory (139964137) Migraine without aura and without status migrainosus, not intractable (G43.009) Active confirmed Problem Seasonal allergy (389536529) Seasonal allergies (J30.2) Active confirmed Problem Mild intermittent asthma (920823040) Intermittent asthma without complication, unspecified asthma severity (J45.20) Active confirmed Problem Asthma without status asthmaticus (59495260) Asthma, unspecified asthma severity, unspecified whether complicated, unspecified whether persistent (J45.909) Active confirmed Plan Of Treatment Pending Test Test Name Order Date MAMMOGRAM, SCREENING 04/21/2023 Insurance Providers Payer Name Payer Address Payer Phone Subscriber Number Group Number Insured Name Patient Relationship to Insured Coverage Start Date Coverage End Date [employer] [address] [place] [phone] [id number] Cameron Stafford Spouse - patient is the spouse of the insured Medical (General) History Medical History History ICD Code ibs constipation 2015 seasonal alleries tachycardia 2019 holter monitor [facility] [address] [place] next appt 3 weeks wellbutrin iin 20s caused hallucination DONOT prescribe migraine [address] Rollins esophageal primo [address] Calin Prabhakar EGD DR Jiménez Surgical History Surgery Date(Month/Year) appy 1984 breast reduction 1998 polyp removal during colonoscopy 08/24
== END 2024-12-22 10:47 | disposition home or self-care (01) ==
LOC: HO.HMCFM 09:53
PROVIDERS: PCP Nurse Practitioner Family; Visit Provider Nurse Practitioner Family
DX: Z00.00 Encounter for general adult medical examination without abnormal findings (principal); J30.89 Other allergic rhinitis; H26.9 Unspecified cataract; E78.2 Mixed hyperlipidemia; I10 Essential (primary) hypertension; Z23 Encounter for immunization

== ENCOUNTER → 2024-12-22 09:52 | Outpatient (BNVA) | payer OTHER, SELFPAY | PROVIDERS: PCP Nurse Practitioner Family; Visit Provider Nurse Practitioner Family | DX: Z00.00 Encounter for general adult medical examination without abnormal findings (principal); H26.9 Unspecified cataract; I10 Essential (primary) hypertension; G43.909 Migraine, unspecified, not intractable, without status migrainosus; F98.8 Other specified behavioral and emotional disorders with onset usually occurring in childhood and adolescence; G47.00 Insomnia, unspecified; K58.9 Irritable bowel syndrome, unspecified; N95.9 Unspecified menopausal and perimenopausal disorder; E78.2 Mixed hyperlipidemia; J45.909 Unspecified asthma, uncomplicated; Z23 Encounter for immunization | CPT/HCPCS: 90471; 90715 ==

== ENCOUNTER 2024-12-27 08:02 | Outpatient (REF) | payer OTHER, SELFPAY ==
--- OUTSIDE RECORDS SUMMARY | 2008-10-18 07:00 | XMS_ITS | Continuity of Care Document ---
Author Organization [facility] Address [address] [facility] [address] [place] [address] Phone Care Team Providers Care Bookmaker Map Name Role Phone Ariadna Nargis Unavailable Unavailable Procedures Procedure Date Office Visit Wet Prep Fluconazole Nystantin Office Visit Wet Prep Fluconazole Terconazole 7 Office Visit Wet Prep Metronidazole 500mg #14 Terconazole 7 Advance Directives Directive Yes / No Effective Date File Name No Information Encounters Encounter Description Practice Location Reason(s) For Visit Diagnoses Date Provider Providers Copied on Encounter Office Visit [facility], [address] [place] [address], [facility], tel:[phone] Theresa CURRY No Information 9 Ariadna Barillas. [address] [facility] [address], [place], [id number], . tel:[phone] Office Visit [facility], [address] [place] [address], [facility], tel:[phone] [place] No Information 8 Lilliwaup Zeinab. [address], [place], [address]. tel:[phone] Office Visit [facility], [address] [place] [address], [facility], tel:[phone] [place] No Information 8 No Information Family History Family Member Type Diagnosis Age At Onset No Information Payers Payer name Insurance type Covered alliance party ID Authoriza tion(s) Private Pay 09 [id number] Social History Type Description Quantity Date Captured Comments Sex Female Smoking Status No Information Chief Complaint And Reason For Visit No Information Reason For Referral Reason For Referral No Information History Of Present Illness Encounter Date Complaint History Of Prese nt Illness No Information Functional Status Date Functional Assessmen t No Information Instructions Date Instruction Additional Infor mation No Information Assessments Type Assessment Date No Information Patient Care Teams Name Effective Dates (start - stop) Status Members No Information
--- OUTSIDE RECORDS SUMMARY | 2020-03-11 04:55 | XMS_ITS | Continuity of Care Document ---
Author Organization [facility] Address [address] [place] [address] Phone Care Team Providers Care Hand I Thermal Cutter Name Role Phone No Information Unavailable Unavailable Medications Medication Instructions Dosage Effective Dates (start - stop) Status Comments Zithromax 250 mg Tab Use as directed. - Active Paxil 10 mg Tab Take one tablet by mouth daily. - Active VENTOLIN 90MCGAEROSOL Inhale two times b y mouth every six hours - Active Nasacort AQ 55 mcg Nasal [place] Aerosol Inhale two times via nostril daily - Active Claritin 10 mg Tab Take one tablet by mouth as needed. - Active Advance Directives Directive Yes / No Effective Date File Name No Information Encounters Encounter Description Practice Location Reason(s) For Visit Diagnoses Date Provider Providers Copied on Encounter Medical [facility], [address], [place], [place], [id number] , tel: [phone] No Information 0 No Information Medical [facility], [address], [place], [place], [id number] , tel: [phone] [place] [facility] No Information 4 V[address] Mor. [address], [place], [place], [id number], [place]. tel:[phone] Medical [facility], [address], [place], [place], [id number] , tel: [phone] [facility] SINUSITIS, MAXILLARY, ACUTE 3 V[address]quez Mor. [address], [place], [place], [id number], [place]. tel:[phone] Medical [facility], [address], [place], [place], [id number] , [place] tel: [phone] [facility] ASTHMA, INTRINSICALLERGIC RHINITIS DUE TO POLLEN [address] 3 Kathie Juares. [address], [place], [place], [id number], [place]. tel:[phone] Family History Family Member Type Diagnosis Age At Onset No Information Payers Payer name Insurance type Covered democrat ID Authoriza tion(s) No Information Social History [...]
--- OUTSIDE RECORDS SUMMARY | 2023-09-21 05:00 | XMS_ITS ---
Author Organization [facility] Address [address] [place] [address] Care Team Providers Care Physician Primary Care Sports Medicine Name Role Phone DAMIÁN, MARIAMA Unavailable [phone] REASON FOR VISIT physical plus refill Encounters Encounter Location Date Provider Diagnosis [facility] [address] [address] 09/21/2023 MARIAMA STEEL Plan Of Treatment No Information Progress Notes * Winsome COKER KDOB: 5 (49 yo F)Acc No.[id number]:09/21/2023 Progress Notes Patient: Winsome GAINES Provider: Joselin STEEL :1975 A ge:48 Y S ex:Female Date:09/21/2023 Address:[address] [place], [place] [phone] Subjective: * Chief Complaints: * 1 . Physical plus refill. * Medical History: Objective: * Vitals: Assessment: Plan: * Treatment: * Billing Information: * Visit Code: * Procedure Codes: * Electronic signature of KALINA STEEL MD on 12/27/2024 at 07:06 AM CDT Sign off status: Pending * Provider: Joselin STEEL Date: 09/21/2023 Generated for Ashley hwang/Ceeg/eTransmitting on: 0 12/27/2024 07:06 AM CDT
--- OUTSIDE RECORDS SUMMARY | 2023-10-23 09:16 | XMS_ITS ---
Author Organization [facility] Physician Dannie es Billing Info Address [address] [place] [address] Care Team Providers Care Hand Binder Cutter Name Role Phone LISA MCDOWELL [phone] REASON FOR VISIT RX questions Encounters Encounter Location Date Provider Diagnosis [id number] [address] [facility] [address] [place] [address] 10/23/2023 LISA MCDOWELL Plan Of Treatment No Information Progress Notes * Winsome COKERDOB:1975 (48 yo F)Acc No.[id number]:10/23/2023 Patient: Winsome GAINES :1975 A ge:48 Y S ex:Female Address:[address] [place] [address] * true * Date: Generated for Ashley hwang/Rancho/eTransmitting on: 0 12/27/2024 07:05 AM CDT
--- OUTSIDE RECORDS SUMMARY | 2023-12-09 11:30 | XMS_ITS ---
Author Organization [facility] Physician Dannie davey Billing Info Address [address] [place] [address] Care Team Providers Care Steamer Tender Name Role Phone LISA MCDOWELL Unavailable [phone] Allergies Allergen (clinical drug ingredient) Drug/Non Drug [...] 024 Encounters Encounter Location Date Provider Diagnosis [id number] [facility] [address] [facility] [address] [place] [address] 12/09/2023 SUNEET JEREMIAS Well woman exam Z01. [...] Notes * Марина COKERB:1975 (48 yo F)Acc No.[id number]:12/09/2023 PROGRESS NOTE Patient: Sloane PhillipsLONAWinsome Sosa Provider: Joselin MCDOWELL MD :1975 A ge:48 Y S ex:Female Date:12/09/2023 Jorge A LEAL#:[id number] Address:[facility] [id number] Subjective: * Chief Complaints: * 1 . [...] easles/chickenpox, Migraine headaches, no aura, IBS-C. * Pharmacy Technician Per Diem History: L ast pap d ate 2 [...] skin changes. Assessment: * Assessment: 1. W [facility] woman exam - Z01.419 (Primary) [...] 0 12/09/2023 Generated for Printi ng/Fakeng/eTransmitting on: 0 12/27/2024 07:06 AM CDT History and Physical Notes * HPI [...]
--- OUTSIDE RECORDS SUMMARY | 2023-12-14 05:29 | XMS_ITS ---
Author Organization [facility] Physician Dannie davey Billing Info Address [address] [place] [address] Care Team Providers Care Housekeeper Home Name Role Phone JEREMIAS LISA Unavailable [phone] REASON FOR VISIT RX not received Medications [...] Active Encounters Encounter Location Date Provider Diagnosis [id number] [facility] [address] [address] 12/14/2023 LISA MCDOWELL Perimenopausal N95.1 Assessments Encounter [...] Winsome COKER KDOB: 5 (48 yo F)Acc No.[id number]:12/14/2023 Patient: Winsome GAINES :1975 A ge:48 Y S ex:Female Address:[address] [place] [address] * Refills Refill Sprintec 28 Tablet, 0.25-35 MG-MCG, Orally, 112, 1 tablet, Once a day skipping the placebo week, 84 days, Refills=3 Start Estrace Cream, 0.1 MG/GM, Vaginal, 60 grams, 1 gram, Daily at bedtime for 2 weeks and then twice weekly, 60 day(s), Refills=6 * true * Date: Generated for Ashley hwang/Rancho/Blanquita on: 0 12/27/2024 07:06 AM CDT
--- NOTE | ~2024-12-27 | XR_ITS ---
EXAMINATION: XR HAND 3 OR MORE VIEWS RIGHT HISTORY: M79.641 - Pain in right hand COMPARISON: Comparison is made with the prior examination dated 10/27/2024. FINDINGS: Three views of the right hand are submitted. Osseous mineralization is normal. There is no fracture or dislocation. The joint spaces are preserved. The soft tissues are unremarkable. XR/XR hand RT min 3V IMPRESSION: Unremarkable examination of the right hand. Electronically signed by: Ever Nguyễn MD 12/27/2024 08:40 AM EDT
--- OUTSIDE RECORDS SUMMARY | 2024-12-27 08:06 | XMS_ITS | Patient Health Record ---
Author Organization [facility] Address [address] [address] Care Team Providers Care Hole Puncher Strap Name Role Phone MARIAMA STEEL Unavailable [phone] Allergies Allergen (clinical drug ingredient) Drug/Non Drug [...] Problem Irritable bowel syndrome characterized by constipation (235684147) Irritable bowel syndrome with constipation (K58.1) Active confirmed Problem Migraine without aura, not refractory (673856888) Migraine without aura and without status migrainosus, not intractable (G43.009) Active confirmed Problem Seasonal allergy (883636396) Seasonal allergies (J30.2) Active confirmed Problem Mild intermittent asthma (841548809) Intermittent asthma without complication, unspecified asthma severity (J45.20) Active confirmed Problem Asthma without status asthmaticus (31711596) Asthma, unspecified asthma severity, unspecified whether complicated, unspecified whether persistent (J45.909) Active confirmed Plan Of Treatment Pending Test Test Name Order Date MAMMOGRAM, SCREENING 04/21/2023 Insurance Providers Payer Name Payer Address Payer Phone Subscriber Number Group Number Insured Name Patient Relationship to Insured Coverage Start Date Coverage End Date Percy [employer] Insurance [address] [place] [address] [id number] Cameron Stafford Spouse - patient is the spouse of the insured Medical (General) History Medical History History ICD Code ibs constipation 2015 seasonal alleries tachycardia 2019 holter monitor [facility] Dr Chowdhry next appt 3 weeks wellbutrin iin 20s caused hallucination DONOT prescribe migraine [address] Rollins esophageal primo [address] Calin Prabhakar EGD DR Jiménez Surgical History Surgery Date(Month/Year) appy 1984 breast reduction 1998 polyp removal during colonoscopy 08/24
--- OUTSIDE RECORDS SUMMARY | 2024-12-27 08:07 | XMS_ITS | Patient Health Record ---
Author Organization [facility] Billing Info Address [address] [place] [address] Care Team Providers Care Stockroom Coordinator Name Role Phone LISA MCDOWELL Unavailable [phone] Allergies Allergen (clinical drug ingredient) Drug/Non Drug Allergy documented on EMR Reaction Allergy Type Onset Date Status Keflex Unknown Drug Allergy Active oxycodone Oxycodone Unknown Drug Allergy Active Reason For Referral No Information Medications Medication SIG (Take, Route, Frequency, Duration) Notes Start Date End Date Status Atomoxetine HCl 60 MG 1 capsule in the morning Orally Once a day for 30 day(s) Active Estrace 0.1 MG/GM 1 gram Vaginal Daily at bedtime for 2 weeks and then twice weekly for 60 day(s) 12/14/2023 Active Metoprolol Succinate 25 MG 1 capsule Orally Once a day for 30 day(s) Active Sumatriptan Succinate 100 MG 1 tablet at least 2 hours between doses as needed Orally Twice a day Active Amitriptyline HCl 25 MG 1 tablet at bedtime Orally Once a day for 30 day(s) Active Sprintec 28 0.25-35 MG-MCG 1 tablet Orally Once a day skipping the placebo week for 84 days Patient will be taking continuously so will need refills earlier 12/09/2023 Active Social History Tobacco Status: Question Answer Notes Patient is a non tobacco user Plan Of Treatment Pending Test Test Name Order Date URINALYSIS, DIP STICK/TABLET REAGENT; NON-AUTOMATED W/O MICROSCOPY ([id number]) 08/29/2022 Insurance Providers Payer Name Payer Address Payer Phone Subscriber Number Group Number Insured Name Patient Relationship to Insured Coverage Start Date Coverage End Date [facility] SILVER EXCHANGE HMO [address] [place] [address] [id number] ernesto Mendoza Spouse - patient is the spouse of the insured 4 Medical (General) History Medical History History ICD Code measles/chickenpox migraine headaches, no aura IBS-C Surgical History Surgery Date(Month/Year) Breast Reduction 1998 Appendectomy 1985 Hospitalization History Reason Date(Month/Year) denies
== END 2024-12-27 08:03 | disposition home or self-care (01) ==
LOC: HO.HOSX 08:02
DX: M79.89 Other specified soft tissue disorders (principal); M24.9 Joint derangement, unspecified; M79.641 Pain in right hand
CPT/HCPCS: 73130

== ENCOUNTER 2024-12-27 08:27 | Outpatient (AMB) | payer OTHER, SELFPAY ==
--- NOTE | 2024-12-27 08:35 | A.OFFVIS_ITS ---
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 Per referring provider, June, patient was lifting something overhead when she felt a pop betwe en the right index and middle fingers. Patient reports today she has hurt the same area multiple times. She continues to have some swelling on the same area, fluctuating in size from time to time. She is not taking anything for pain at this time. Denies numbness, tingling, finger locking. Denies previous injuries or fractures to the right hand. 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 Per referring provider, June, patient was lifting something overhead when she felt a pop between the right index and middle fingers. Patient reports today she has hurt the same area multiple times. She continues to have some swelling on the same area, fluctuating in size from time to time. She is not taking anything for pain at this time. Overall, the patient states that she feels her symptoms and pain have improved significantly from time and date of injury, but states that she does still experience occasional discomfort with her forming activities with the right hand. Denies numbness, tingling, finger locking. Denies previous injuries or fractures to the right hand. [facility] Medical History (Updated 12/22/24 @ 10:49 by Samia Park [facility]) HTN (hypertension) Hx of mammogram (~2023) IBS (irritable bowel syndrome) ADD (attention deficit disorder) Migraines Asthma Surgical History (Updated 10/25/24 @ 08:53 by Jewels Gipson MA) Hx of colonoscopy (~2022) Hx of appendectomy Family History (Updated 10/25/24 @ 08:55 by Jewels Gipson MA) Mother Asthma Cardiovascular disease Thyroid disorder Skin cancer (melanoma) Substance abuse Father HTN (hypertension) Lung cancer Social History (Updated 12/27/24 @ 08:40 by KEVIN Walker) Household Members: Spouse and Children Both parents involved: No Caregiver staying overnight: No Housing: House Are you a primary career development counselor to a significant other at home: Yes Do you presently have visiting nurse or other home services: No 75 years or older and lives alone: No Alcohol intake: never Patient Tobacco Use Status: Never used Tobacco e-Cigarette/Vaping Use: Never Used Second Hand Smoke Exposure: No service: No Current occupational status: employed 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 Neuro: Normal sensation of the tips of all digits of the right hand at this time Vascular: Cap refill brisk Pain: No tenderness to palpation anywhere in the right hand, particularly in the 2nd webspace in the area of swelling No pain with range of motion of the right hand ROM: Patient is able to make a closed fist and extend all digits of the right hand fully and without difficulty No evidence of tendon slipping with flexion of the MCP or PIP joints Skin: No lacerations or abrasions. General: Small area of mild edema noted in the dorsal 2nd webspace of the right hand No ecchymosis, erythema, or evidence of infection. Psych: Appears grossly normal Affect normal Attitude cooperative Results Reviewed Results Reviewed: X-rays obtained in the office today and independently reviewed by me, Catalnio Madrigal PA-C, demonstrate no fracture or acute bony abnormality of the right hand. Assessment & Plan Assessment & Plan (1) Hypermobile joints: Code(s): M24.9 - Joint derangement, unspecified Category: Medical (2) Swelling of right hand: Code(s): M79.89 - Other specified soft tissue disorders Category: Medical Plan 1. Pain and swelling in dorsal aspect of right 2nd webspace No evidence of fracture or sagittal band injury Patient is educated about this condition Patient is educated about the typical treatment course At this time, patient is offered further imaging to assess the soft tissue structures of the right hand, but declines, stating that she has improved significantly and does not feel this is necessary at this time Patient is referred to occupational therapy for range of motion, strengthening, and most importantly stabilization of the right hand, in the setting of both this injury and suspicion of potential Zoe-Danlos syndrome on the part of her Primary Care Provider Patient understands this and is amenable to this plan Follow-up as needed Orders: Orders XR hand RT min 3V Today M79.641 - Pain in right hand OT Evaluation and Treatment Today M24.9 - Joint derangement, unspecified, M79.89 - Other specified soft tissue disorders Coding Level of Care Code New Pt Level 3 (50279) Diagnoses 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 Swelling of right hand M79.89
[2024-12-27 08:38] VITALS: BMI 30.6
== END 2024-12-27 09:00 | disposition home or self-care (01) ==
LOC: HO.HOS 08:27
PROVIDERS: PCP Nurse Practitioner Family
DX: M24.9 Joint derangement, unspecified (principal); M79.89 Other specified soft tissue disorders
CPT/HCPCS: 99203

== ENCOUNTER → 2024-12-27 08:29 | Outpatient (BNV) | payer OTHER, SELFPAY | PROVIDERS: Visit Provider Radiology Diagnostic Radiology | DX: M79.641 Pain in right hand (principal) | CPT/HCPCS: 73130 ==

== ENCOUNTER 2025-01-09 08:57 | Outpatient (AMB) | payer OTHER, SELFPAY ==
--- OUTSIDE RECORDS SUMMARY | 2023-09-21 05:00 | XMS_ITS ---
Author Organization [facility] Address [address] [place] [address] Care Team Providers Care Cardiology Clinical Nurse Specialist Name Role Phone DAMIÁN, MARIAMA Unavailable [phone] REASON FOR VISIT physical plus refill Encounters Encounter Location Date Provider Diagnosis [facility] [address] [address] 09/21/2023 MARIAMA STEEL Plan Of Treatment No Information Progress Notes * Winsome COKER KDOB: 5 (49 yo F)Acc No.[id number]:09/21/2023 Progress Notes Patient: Winsome GAINES Provider: Jsoelin STEEL :1975 A ge:48 Y S ex:Female Date:09/21/2023 Address:[address] [place], [place] [phone] Subjective: * Chief Complaints: * 1 . Physical plus refill. * Medical History: Objective: * Vitals: Assessment: Plan: * Treatment: * Billing Information: * Visit Code: * Procedure Codes: * Electronic signature of KALINA STEEL MD on 01/09/2025 at 09:05 AM CDT Sign off status: Pending * Provider: Joselin STEEL Date: 09/21/2023 Generated for Ashley ng/Fakeng/eTransmitting on: 0 01/09/2025 09:05 AM CDT
--- OUTSIDE RECORDS SUMMARY | 2023-10-23 09:16 | XMS_ITS ---
Author Organization [facility] Physician Dannie es Billing Info Address [address] [place] [address] Care Team Providers Care Conveyor Feeder Offbearer Name Role Phone LISA MCDOWELL [phone] REASON FOR VISIT RX questions Encounters Encounter Location Date Provider Diagnosis [id number] [address] [facility] [address] [place] [address] 10/23/2023 LISA MCDOWELL Plan Of Treatment No Information Progress Notes * Winsome COKERDOB:1975 (48 yo F)Acc No.[id number]:10/23/2023 Patient: Winsome GAINES :1975 A ge:48 Y S ex:Female Address:[address] [place] [address] * true * Date: Generated for Ashley hwang/Rancho/eTransmitting on: 0 01/09/2025 09:04 AM CDT
--- OUTSIDE RECORDS SUMMARY | 2023-12-09 11:30 | XMS_ITS ---
Author Organization [facility] Physician Dannie davey Billing Info Address [address] [place] [address] Care Team Providers Care Grated Cheese Maker Name Role Phone LISA MCDOWELL Unavailable [phone] Allergies Allergen (clinical drug ingredient) Drug/Non Drug [...] 024 Encounters Encounter Location Date Provider Diagnosis [id number] [facility] [address] [facility] [address] [place] [address] 12/09/2023 SUNEET JEREMIAS Well woman exam Z01. [...] Notes * Марина COKERB:1975 (48 yo F)Acc No.[id number]:12/09/2023 PROGRESS NOTE Patient: Sloane PhililpsLONAWinsome Sosa Provider: Joselin MCDOWELL MD :1975 A ge:48 Y S ex:Female Date:12/09/2023 Jorge A LEAL#:[id number] Address:[facility] [id number] Subjective: * Chief Complaints: * 1 . [...] easles/chickenpox, Migraine headaches, no aura, IBS-C. 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 Assessment: * Assessment: 1. W [facility] woman exam - Z01.419 (Primary) 2 . [...] 12/09/2023 Generated for Printi ng/Fakeng/eTransmitting on: 0 01/09/2025 09:05 AM CDT History and Physical Notes * [...]
--- OUTSIDE RECORDS SUMMARY | 2023-12-14 05:29 | XMS_ITS ---
Author Organization [facility] Physician Dannie davey Billing Info Address [address] [place] [address] Care Team Providers Care Extension Service Advisor Name Role Phone JEREMIAS LISA Unavailable [phone] REASON FOR VISIT RX not received Medications [...] Active Encounters Encounter Location Date Provider Diagnosis [id number] [facility] [address] [address] 12/14/2023 LISA MCDOWELL Perimenopausal N95.1 Assessments Encounter [...] Winsome COKER KDOB: 5 (48 yo F)Acc No.[id number]:12/14/2023 Patient: Winsome GAINES :1975 A ge:48 Y S ex:Female Address:[address] [place] [address] * Refills Refill Sprintec 28 Tablet, 0.25-35 MG-MCG, Orally, 112, 1 tablet, Once a day skipping the placebo week, 84 days, Refills=3 Start Estrace Cream, 0.1 MG/GM, Vaginal, 60 grams, 1 gram, Daily at bedtime for 2 weeks and then twice weekly, 60 day(s), Refills=6 * true * Date: Generated for Ashley hwagn/Rancho/Blanquita on: 0 01/09/2025 09:04 AM CDT
--- NOTE | 2025-01-09 08:59 | A.OFFPC_ITS ---
Vital Signs 01/09/25 09:04 Height 6 ft 1 in Weight 225 lb 2 oz BMI 29.7 BP 122/70 Blood Pressure Location Lt brachial Position Sitting Respiration 12 Pulse 75 Pulse Source Pulse Oximeter Temp 97.5 F Temp Source Oral Pulse Oximetry (%) 98 Oxygen Delivery Method Room Air Intake Visit Reasons: cold sores Intake Note: Patient c/o cold sores inside her mouth since last week. Lift Operator Required: No Allergies cephalexin (From Keflex) Allergy (Mild, Verified 01/09/25 08:59) Rash oxycodone Allergy (Mild, Verified 01/09/25 08:59) Rash Medication List - Last Reconciled 01/09/25 by Samia Park, MARLA- albuterol sulfate 90 mcg/actuation (Ventolin HFA) 2 puffs inhalation Q6H PRN amitriptyline 25 mg PO BEDTIME atomoxetine 100 mg PO QAM budesonide-formoterol 80-4.5 mcg/actuation 2 puffs inhalation ONCE estradiol (Lyllana) 1 patch topical 2XW nebivolol 20 mg PO DAILY progesterone micronized 100 mg PO BEDTIME sumatriptan succinate take 1 tab at onset of headache; if no relief, may repeat 1 tab after at least 2 hrs; max = 2 tabs/24 hrs PO trazodone 50 mg PO BEDTIME tretinoin 0.1% 1 appl topical BEDTIME valacyclovir 1,000 mg PO DAILY 90 days Tobacco use date assessed: 01/09/25 Dental Screening Dental Screen Date: 01/09/25 Did you have a dental visit in the last 12 months?: Yes Did you have a dental problem in the last 6 months where you did not have access to dental care?: No Was dental information given to patient?: Patient has dentist HPI HPI Comments History of Present Illness Details 49 y/o F with migraines, HTN, Asthma, AD D, insomnia, perimenopause, IBS, perimenopause s/p sinus surgery Social: , 1 child son age 16 Family history: melanoma (mother), polyps (father) History of Present Illness - The patient is a 49-year-old female pr esenting with recurrent oral ulcers. - Recent oral ulceration involves tongue , roof of mouth, and lip, causing pain but with noted improvement with valacyclovir. - Second outbreak since age 20. - Denies recent changes in oral hygiene products, triggering foods, or systemic symptoms. - Reports throat soreness without ulcera tion. - Stress acknowledged as chronic, not ne wly exacerbated. Review of Systems - Mouth/Throat: Reports recurrent oral u lcers on tongue, side of tongue, roof of mouth, and lip. Denies throat ulceration. - Systemic: Denies flu-like symptoms, de nies colds, and flu. - Skin: Denies similar eruptions on hand s or feet. - Gastrointestinal: Reports history of r ecurrent esophageal yeast infections. Physical Exam General: Well developed, well nourished, in no acute distress. Appears stated age. Head: Normocephalic, atraumatic. Eyes: Pupils are equal, round and reactive to light and accommodation. Conjunctivae are clear Lungs: Speaking in full sentences MMM, herpatic lesions noted inside upper and lower lips, buccal mucousa, roof of mouth and side of tongue. Pharynx clear. No adenopathy. Discussion Notes I discussed with the patient that the likely diagnosis is herpes labialis given the recurrent nature of her oral ulcers and past history. She has begun valacyclovir,which she tolerates well so far. Given the patient's history we discussed the potential need for long-term suppressive therapy if recurrent episodes persist. I explained that taking valacyclovir once daily for 30 days after the initial 7-day treatment twice daily may help prevent recurrences. We discussed the importance of starting treatment at the first sign of an outbreak. In addition, she can utilize Mylanta as a soothing oral rinse if discomfort persists. Ok for salt h20 and baking soda mouht rinse, too. I will send a prescription for the suppressive course and reassess if symptoms recur. The importance of ongoing monitoring of liver function with long-term suppressive therapy was also considered, although not indicated for all patients. Patient was given time to ask questions. All questions were answered to their satisfaction. Assessment and Plan 1. Recurrent oral ulcers - Valacyclovir regimen discussed, with p reventive daily dose recommendation. - Mylanta oral rinse option for symptom control. - Possible long-term valacyclovir therap y for frequent recurrences. Patient Instructions - Continue valacyclovir 1000 mg twice da darshan for 7 days, then once daily for 30 days. I have sent extra to use for recurrence - taking BID x 7 days if this occurs. - Use Mylanta oral rinse if oral discomf ort persists. - Begin antiviral therapy immediately at the first sign of oral ulcers returning. - Monitor and report any recurrences or adverse effects promptly. - RTO as scheduled, sooner as needed. Consent Patient was informed and verbally consented to the use of an ambient scribe for clinic note documentation during this visit. Total time spent caring for the patient today was 30 minutes. This includes time spent before the visit reviewing the chart, time spent during the visit, and time spent after the visit on documentation, reviewing laboratory results, diagnostic imaging, medications, performing a medically necessary evaluation, counseling on diagnoses, care coordination, ordering appropriate tests, ordering appropriate medications, review of tests performed by other providers, reporting test results with the patient, communication with other healthcare providers. [facility] Medical History (Updated 01/09/25 @ 09:29 by Samia Park [facility]) ADD (attention deficit disorder) Asthma HTN (hypertension) Hx of mammogram (~2023) IBS (irritable bowel syndrome) Migraines Surgical History (Updated 10/25/24 @ 08:53 by Jewels Gipson MA) Hx of appendectomy Hx of colonoscopy (~2022) Family History (Updated 10/25/24 @ 08:55 by Jewels Gipson MA) Mother Asthma Cardiovascular disease Thyroid disorder Skin cancer (melanoma) Substance abuse Father HTN (hypertension) Lung cancer Social History (Updated 12/27/24 @ 08:40 by KEVIN Walker) Household Members: Spouse and Children Both parents involved: No Caregiver staying overnight: No Housing: House Are you a primary child care worker to a significant other at home: Yes Do you presently have visiting nurse or other home services: No 75 years or older and lives alone: No Alcohol intake: never Patient Tobacco Use Status: Never used Tobacco e-Cigarette/Vaping Use: Never Used Second Hand Smoke Exposure: No service: No Current occupational status: employed 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 Current occupational exposures/hazards: No Cognitive needs: No Hearing needs: No Vision needs: Yes (wear glasses) Questionnaire Thrive Questionnaire Date Thrive assessed: 10/25/24 I am a: Patient What is your living situation today?: I have a steady place to live Within the past 12 months, did the food you bought not last and you didn't have the money to get more?: Never true Within the past 12 months, did you worry whether your food would run out before you got money to buy more?: Never true Do you have trouble paying for medicines?: No Do you have trouble getting transportation to medical appointments?: No Do you have trouble paying your heating and electricity bill?: No Do you have trouble taking care of your child, family member or friend?: No Do you have trouble with day-to-day activities such as bathing, preparing meals, shopping, managing finances, etc.?: No Are you currently unemployed and looking for a job?: No Are you interested in more education?: No Please select the resources that you would like help with: None Currently or been in a relationship where the following occur: No concerns reported THRIVE Score: 0 THOMAS-7 AMB Questionnaire THOMAS-7 Date THOMAS - 7 assessed: 10/25/24 Source: Developed by Drs. Ever Cherry, Maria Fernanda Maurer, Levy Sauceda and colleagues, with an educational ambar from [employer]. Physical exam (Primary Care) Vital Signs: Last Vital Signs Temp 97.5 F 01/09/25 09:04 Pulse 75 01/09/25 09:04 Resp 12 01/09/25 09:04 BP 122/70 01/09/25 09:04 Pulse Ox 98 01/09/25 09:04 Oxygen Delivery Method Room Air 01/09/25 09:04 BMI result Body Mass Index 29.7 Tobacco/Smoking Status: Tobacco use Status Tobacco use date assessed 01/09/25 01/09/25 09:01 Patient Tobacco Use Status Never used Tobacco 01/09/25 09:01 e-Cigarette/Vaping Use Never Used 01/09/25 09:01 Thrive Assessment: Date of Thrive Assessment Date Thrive assessed 10/25/24 01/09/25 09:01 Currently or been in a relationship where the following occur: No concerns reported Coding Level of Care Code Est Pt Level 4 (40891) Complex EM visit Add On G2211 Diagnoses Herpes simplex B00.9 Assessment & Plan Assessment & Plan (1) Herpes simplex: Code(s): B00.9 - Herpesviral infection, unspecified Category: Medical Plan . Medications: Changed From valacyclovir 1,000 mg PO q12h 7 days PRN 14 tabs 0RF herpes To valacyclovir 1,000 mg PO DAILY 90 tabs 0RF herpes 90 days
[2025-01-09 09:04] VITALS: BP 122/70; PULSE 75; RESP 12; TEMP 36.4; O2SAT 98; BMI 29.7
--- OUTSIDE RECORDS SUMMARY | 2025-01-09 10:05 | XMS_ITS | Patient Health Record ---
Author Organization [facility] Billing Info Address [address] [place] [address] Care Team Providers Care Public Policy Analyst Name Role Phone LISA MCDOWELL Unavailable [phone] Allergies Allergen (clinical drug ingredient) Drug/Non Drug [...] URINALYSIS, DIP STICK/TABLET REAGENT; NON-AUTOMATED W/O MICROSCOPY (36522) 08/29/2022 Insurance Providers Payer Name Payer Address Payer Phone Subscriber Number Group Number Insured Name Patient Relationship to Insured Coverage Start Date Coverage End Date [facility] S[employer]VER EXCHANGE HMO [address] [place] [address] [id number] ernesto Mendoza Spouse - patient is the spouse of the insured 4 Medical (General) History Medical History History ICD Code measles/chickenpox migraine headaches, no aura IBS-C Surgical History Surgery Date(Month/Year) Breast Reduction 1998 Appendectomy 1985 Hospitalization History Reason Date(Month/Year) denies
--- OUTSIDE RECORDS SUMMARY | 2025-01-09 10:05 | XMS_ITS | Patient Health Record ---
Author Organization [facility] Address [address] [address] Care Team Providers Care Insurance Consultant Name Role Phone MARIAMA STEEL Unavailable [phone] Allergies Allergen (clinical drug ingredient) Drug/Non Drug [...] Problem Irritable bowel syndrome characterized by constipation (650888222) Irritable bowel syndrome with constipation (K58.1) Active confirmed Problem Migraine without aura, not refractory (396559198) Migraine without aura and without status migrainosus, not intractable (G43.009) Active confirmed Problem Seasonal allergy (553547867) Seasonal allergies (J30.2) Active confirmed Problem Mild intermittent asthma (852324260) Intermittent asthma without complication, unspecified asthma severity (J45.20) Active confirmed Problem Asthma without status asthmaticus (59520232) Asthma, unspecified asthma severity, unspecified whether complicated, unspecified whether persistent (J45.909) Active confirmed Plan Of Treatment Pending Test Test Name Order Date MAMMOGRAM, SCREENING 04/21/2023 Insurance Providers Payer Name Payer Address Payer Phone Subscriber Number Group Number Insured Name Patient Relationship to Insured Coverage Start Date Coverage End Date Percy [employer] Insurance [address] [place] [address] [id number] Cameron Stafford Spouse - patient is the spouse of the insured Medical (General) History Medical History History ICD Code ibs constipation 2015 seasonal alleries tachycardia 2019 holter monitor [facility] Dr Chowdhry next appt 3 weeks wellbutrin iin 20s caused hallucination DONOT prescribe migraine [address] Rollins esophageal primo [address] Calin Prabhakar EGD DR Jiménez Surgical History Surgery Date(Month/Year) appy 1984 breast reduction 1998 polyp removal during colonoscopy 08/24
== END 2025-01-09 09:22 | disposition home or self-care (01) ==
LOC: HO.HMCFM 08:58
PROVIDERS: Visit Provider Nurse Practitioner Family
DX: B00.9 Herpesviral infection, unspecified (principal)

== ENCOUNTER 2025-02-10 11:07 | Outpatient (REF) | payer OTHER, SELFPAY ==
[2025-02-10 15:04] LABS: Chlamydia pneumoniae PCR Not Detected (Not Detect.); Coronavirus 229E PCR Not Detected (Not Detect.); Coronavirus HKU1 PCR Not Detected (Not Detect.); Coronavirus NL63 PCR Not Detected (Not Detect.); Coronavirus OC43 PCR Not Detected (Not Detect.); RSV PCR Not Detected (Not Detect.); Rhino/Enterovirus PCR Not Detected (Not Detect.); SARS-CoV-2 PCR Not Detected (Not Detect.)
[2025-02-10 15:32] LABS: Influenza A H1 PCR Not Detected (Not Detect.); Influenza A H1-2009 PCR Not Detected (Not Detect.); Influenza A H3 PCR Not Detected (Not Detect.)
== END 2025-02-10 11:08 | disposition home or self-care (01) ==
LOC: HO.LAB 11:07
PROVIDERS: PCP Nurse Practitioner Family; Visit Provider Physician Assistant
DX: J45.909 Unspecified asthma, uncomplicated (principal); J22 Unspecified acute lower respiratory infection; J02.9 Acute pharyngitis, unspecified; J34.89 Other specified disorders of nose and nasal sinuses; R05.3 Chronic cough; Z79.899 Other long term (current) drug therapy
CPT/HCPCS: 87633

== ENCOUNTER 2025-02-10 11:07 | Outpatient (AMB) | payer OTHER, SELFPAY ==
[2025-02-10 11:20] VITALS: BP 114/90; PULSE 78; RESP 16; TEMP 37; O2SAT 96; BMI 29.0
--- NOTE | 2025-02-10 11:20 | MHC.OFFWIV ---
Intake Vital Signs 02/10/25 11:20 Height 6 ft 1 in Weight 220 lb BMI 29.0 BP 114/90 H Blood Pressure Location Lt brachial Position Sitting Respiration 16 Pulse 78 Pulse Source Pulse Oximeter Temp 98.6 F Temp Source Oral Pulse Oximetry (%) 96 Oxygen Delivery Method Room Air Intake Visit Reasons: EP- persistent cough Intake Note: Pt is here today for a persistent cough x2wks Patient Tobacco Use Status: Never used Tobacco Allergies cephalexin (From Keflex) Allergy (Mild, Verified 02/10/25 11:24) Rash oxycodone Allergy (Mild, Verified 02/10/25 11:24) Rash HPI HPI Comments History of Present Illness Details History - The patient is a 49-year-old female presenting with symptoms of an upper respiratory infection x 2 weeks. - Symptoms began after returning from a business trip, initially resembling allergies with sore throat and sinus drainage, worsening over time. - She experiences a non-productive cough, severe at night, causing sleep disturbances. - COVID-19 and influenza tests were negative. - History of asthma, managed with budesonide and formoterol inhalers, used as needed during exertion. - Inhalers have not been used recently despite symptom exacerbation. - Does not smoke or vape - Denies fevers, shortness of breath or wheezing, ear or sinus pain. Physical Exam General: Cooperative, healthy appearing, comfortable and no acute distress Orientation/consciousness: Patient oriented x3 Limitations: No limitations Head: Normal to inspection Ears: Hearing grossly normal bilaterally, external ears normal and TM's normal bilaterally Nose: Normal external nose present, Normal nares present and No nasal discharge present Face and sinus: Normal facial exam and Sinuses tender Mouth: Normal oral and palatal mucosa present and moist mucous membranes Throat: Yes tonsils normal, Yes uvula midline. Posterior oropharynx erythema, no exudates Eyes: Appearance normal, both eyes and all related structures Neck: Normal visual inspection, full ROM Respiratory: Clear to auscultation bilaterally. Normal respiratory effort, able to speak in complete sentences, not actively coughing, no respiratory distress, not tachypneic, no tripod positioning and no use of accessory muscles Cardiovascular: Regular rate and rhythm. Normal S1 and S2 Skin: No rashes or lesions noted Neuro: Patient oriented x3 Extremities: Normal to inspection and Yes no clubbing, cyanosis or edema Review of Systems - General: Denies fever - Respiratory: Reports non-productive cough, denies wheezing or dyspnea - Cardiovascular: Denies chest pain All systems reviewed and are unremarkable except as noted in HPI [facility] Medical History (Updated 02/10/25 @ 11:53 by Evi Sosa PA-C) HTN (hypertension) Hx of mammogram (~2023) IBS (irritable bowel syndrome) ADD (attention deficit disorder) Migraines Asthma Surgical History (Updated 10/25/24 @ 08:53 by Jewels Gipson MA) Hx of colonoscopy (~2022) Hx of appendectomy Family History (Updated 10/25/24 @ 08:55 by Jewels Gipson MA) Mother Asthma Cardiovascular disease Thyroid disorder Skin cancer (melanoma) Substance abuse Father HTN (hypertension) Lung cancer Social History (Updated 12/27/24 @ 08:40 by KEVIN Walker) Household Members: Spouse and Children Both parents involved: No Caregiver staying overnight: No Housing: House Are you a primary respiratory care assistant to a significant other at home: Yes Do you presently have visiting nurse or other home services: No 75 years or older and lives alone: No Alcohol intake: never Patient Tobacco Use Status: Never used Tobacco e-Cigarette/Vaping Use: Never Used Second Hand Smoke Exposure: No service: No Current occupational status: employed 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 Current occupational exposures/hazards: No Cognitive needs: No Hearing needs: No Vision needs: Yes (wear glasses) Physical Exam Vital Signs: Last Vital Signs Temp 98.6 F 02/10/25 11:20 Pulse 78 02/10/25 11:20 Resp 16 02/10/25 11:20 BP 114/90 H 02/10/25 11:20 Pulse Ox 96 02/10/25 11:20 Oxygen Delivery Method Room Air 02/10/25 11:20 BMI result Body Mass Index 29.0 Assessment & Plan Assessment & Plan (1) Lower respiratory infection (e.g., bronchitis, pneumonia, pneumonitis, pulmonitis): Code(s): J22 - Unspecified acute lower respiratory infection Plan: Plan Patient was informed and verbally consented to the use of an ambient scribe for clinic note documentation during this visit. - VSS, pt well appearing and PE unremarkable. - Use budesonide and formoterol inhalers as needed, especially during exacerbations. - Prescribe a short course of oral steroids to reduce inflammation, improve respiratory function and cough. - Conducted a respiratory viral panel to confirm viral etiology. - Prescribed tessalon pearls for cough suppression, especially at night. - Advised continuation of [id number] medications for symptom relief. - Plan to prescribe antibiotics (Zpak) if viral panel is negative. - Recommended rest and hydration to support recovery. Medications: New benzonatate 200 mg PO BEDTIME PRN 10 caps 0RF cough prednisone 20 mg PO DAILY 5 tabs 0RF Coding Level of Care Code Est Pt Level 3 (10225) Diagnoses Lower respiratory infection (e.g., bronchitis, pneumonia, pneumonitis, pulmonitis) J22
== END 2025-02-10 11:58 | disposition home or self-care (01) ==
PROVIDERS: PCP Nurse Practitioner Family; Visit Provider Physician Assistant
DX: J22 Unspecified acute lower respiratory infection (principal)

== ENCOUNTER → 2025-02-11 08:00 | Outpatient (BNV) | payer OTHER, SELFPAY | PROVIDERS: PCP Nurse Practitioner Family; Visit Provider Internal Medicine | DX: Z12.31 Encounter for screening mammogram for malignant neoplasm of breast (principal) | CPT/HCPCS: 77063; 77067 ==

== ENCOUNTER 2025-02-11 08:04 | Outpatient (REF) | payer OTHER, SELFPAY | END 2025-02-11 08:05 | disposition home or self-care (01) | LOC: HO.MAMMO 08:04 | PROVIDERS: PCP Nurse Practitioner Family; Visit Provider Nurse Practitioner Family | DX: Z12.31 Encounter for screening mammogram for malignant neoplasm of breast (principal) | CPT/HCPCS: 77063; 77067 ==

== ENCOUNTER 2025-02-24 11:31 | Outpatient (AMB) | payer OTHER, SELFPAY ==
--- OUTSIDE RECORDS SUMMARY | 2023-09-21 05:00 | XMS_ITS ---
Author Organization [facility] Address [address] [place] [address] Care Team Providers Care Children'S Minister Name Role Phone DAMIÁN, MARIAMA Unavailable [phone] REASON FOR VISIT physical plus refill Encounters Encounter Location Date Provider Diagnosis [facility] [address] [address] 09/21/2023 MARIAMA STEEL Plan Of Treatment No Information Progress Notes * Winsome COKER KDOB: 5 (49 yo F)Acc No.[id number]:09/21/2023 Progress Notes Patient: Winsome GAINES Provider: Joselin STEEL :1975 A ge:48 Y S ex:Female Date:09/21/2023 Address:[address] [place], [place] [phone] Subjective: * Chief Complaints: * 1 . Physical plus refill. * Medical History: Objective: * Vitals: Assessment: Plan: * Treatment: * Billing Information: * Visit Code: * Procedure Codes: * Electronic signature of KALINA STEEL MD on 02/24/2025 at 12:59 PM CDT Sign off status: Pending * Provider: Joselin STEEL Date: 0 09/21/2023 Generated for Janei ng/Fakeng/eTransmitting on: 1 12:59 PM CDT
--- OUTSIDE RECORDS SUMMARY | 2023-10-23 09:16 | XMS_ITS ---
Author Organization [facility] Physician Dannie es Billing Info Address [address] [place] [address] Care Team Providers Care Academic Registrar Name Role Phone LISA MCDOWELL [phone] REASON FOR VISIT RX questions Encounters Encounter Location Date Provider Diagnosis [id number] [place] [address] [facility] [address] [place] [address] 10/23/2023 LISA MCDOWELL Plan Of Treatment No Information Progress Notes * Winsome COKERDOB:1975 (48 yo F)Acc No.[id number]:10/23/2023 Patient: Winsome GAINES :1975 A ge:48 Y S ex:Female Address:[address] [place] [phone] * true * Date: Generated for Ashley hwang/Rancho/eTransmitting on: 12:58 PM CDT
--- OUTSIDE RECORDS SUMMARY | 2023-12-09 11:30 | XMS_ITS ---
Author Organization [facility] Physician Dannie davey Billing Info Address [address] [place] [address] Care Team Providers Care Transport Analyst Name Role Phone LISA MCDOWELL Unavailable [phone] Allergies Allergen (clinical drug ingredient) Drug/Non Drug Allergy documented on EMR Reaction Allergy Type Onset Date Status Keflex Unknown Drug Allergy Active oxycodone Oxycodone Unknown Drug Allergy Active REASON FOR VISIT wwe Medications Medication SIG (Take, Route, Frequency, Duration) Notes Start Date End Date Status Metoprolol Succinate 25 MG 1 capsule Orally Once a day for 30 day(s) Active Sumatriptan Succinate 100 MG 1 tablet at least 2 hours between doses as needed Orally Twice a day Active Atomoxetine HCl 60 MG 1 capsule in the morning Orally Once a day for 30 day(s) Active Sprintec 28 0.25-35 MG-MCG 1 tablet Orally Once a day skipping the placebo week for 84 days Patient will be taking continuously so will need refills earlier 12/09/2023 Active Amitriptyline HCl 25 MG 1 tablet at bedtime Orally Once a day for 30 day(s) Active Social History Tobacco Status: Question Answer Notes Patient is a non tobacco user Vital Signs Height 71 in 12/09/2023 Weight 224 lbs 12/09/2023 BMI 31.24 kg/m2 12/09/2023 Blood pressure systolic 130 mm Hg 12/09/19 24 Blood pressure diastolic 90 mm Hg 024 Encounters Encounter Location Date Provider Diagnosis [id number] [facility] [address] [facility] [address] [place] [address] 12/09/2023 SUNEET JEREMIAS Well woman exam Z01. 419 and Perimenopausal N95.1 Assessments Encounter Date Diagnosis (ICD Code) Assessment Notes Treatment Notes Treatment Clinical Notes Section Notes 12/09/2023 Well woman exam (ICD-10 - Z01.419) Present pelvic exam within normal limits. Pap was not collected she had 1 last year that was normal. STI testing was offered and declined. Patient gets annual labs done with her PCP. She is up-to-date on both her mammogram and her colonoscopy. Discussed with patient to follow-up with dermatology for the 2 lesions near her anus that appear to be somewhat consistent with genital warts for removal and freezing. 12/09/2023 Perimenopausal (ICD-10 - N95.1) Patient has been having difficulties with hot flashes again. Patient still having cycles and can feel when she ovulates at times. Discussed stopping the patches and the Provera and the norethindrone pills that she is on and just using OCPs for the next year. Patient has no contraindications . Prescription has been sent Plan Of Treatment Medication Medication Name Sig Start Date Stop Date Notes Sprintec 28 0.25-35 MG-MCG 1 tablet Orally Once a day skipping the placebo week for 84 days 12/09/2023 Patient will be taki ng continuously so will need refills earlier Treatment Notes Assessment Notes Well woman exam Present pelvic exam within normal limits. Pap was not collected she had 1 last year that was normal. STI testing was offered and declined. Patient gets annual labs done with her PCP. She is up-to-date on both her mammogram and her colonoscopy. Discussed with patient to follow-up with dermatology for the 2 lesions near her anus that appear to be somewhat consistent with genital warts for removal and freezing. Perimenopausal Patient has been hav ing difficulties with hot flashes again. Patient still having cycles and can feel when she ovulates at times. Discussed stopping the patches and the Provera and the norethindrone pills that she is on and just using OCPs for the next year. Patient has no contraindications. Prescription has been sent Next Appt Details Follow Up: 1 Year, Reason: w we Progress Notes * Марина COKERB:1975 (48 yo F)Acc No.[id number]:12/09/2023 PROGRESS NOTE Patient: Sloane PhillipsLONAWinsome Sosa Provider: Joselin MCDOWELL MD :1975 A ge:48 Y S ex:Female Date:12/09/2023 Jorge A LEAL#:[id number] Address:[facility] [id number] Subjective: * Chief Complaints: * 1 . Wwe. * HPI: D o Not Use First Point of Contact Screening: Do you have any of the following symptoms? N ew symptoms over the past 7 days n one I n the past 3 weeks, have you traveled either within the [place] or internationally? N o I n the past 3 weeks, have you had close contact with someone who has traveled either within the [place] or internationally? N o P atient History: 48 yo presenting for well woman exam. Menstrual cycles are regular. Patient is sexually active Contraception - Norethindrone Last mammogram was earlier this year Last colonoscopy was last year Last Pap was 09/05/2022 and NILM with HPV neg No concerns today. * ROS: G YNECOLOGY: Constitutional N egative for: fever, fatigue, chills, night sweats. S kin and/or Breast N egative for: hair loss, acne, rash, nipple discharge. H EENT N egative for: double vision, drainage, sneezing, sore throat, headache. R riley/Pulmonology N egative for: cough, chest tightness, shortness of air. C ardiology N egative for: chest pain, cold extremities, edema, leg swelling. G astroenterology N egative for: abdominal pain, bloating, constipation, diarrhea, vomiting, nausea. G enitourinary N egative for: painful urination, pain in back, frequency, urgency, heavy periods, vaginal itching, vaginal discharge. Gynecology N egative for:, abnormal bleeding, breast concerns, decreased libido, changes in periods, dysmenorrhea, hot flashes, menstrual concerns, mood instability, painful intercourse, painful periods, pelvic pain, post coital bleeding, vaginal dryness. M usculoskeletal N egative for: joint pain, muscle pain. N eurology N egative for: confusion, dizziness, headaches, weakness. P sychology N egative for: psychological issues, mood swings, sleep disturbance, suicidal thoughts, homicidal thoughts. H em/Lymph N egative for: bleeding, bruising, fatigue, fever, sweats. E ndocrinology N egative for: hair loss, hot flashes, night sweats, intolerance to cold, intolerance to heat, weight changes. A ll other systems are reviewed and are negative. * Medical History: M easles/chickenpox, Migraine headaches, no aura, IBS-C. 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 L ast mammogram d ate 2 022 L ast menstrual period d ate P eriods e very 28 days, flow light, flow moderate, flow heavy. L leslie time sexual partners 7 . * OB History: T otal pregnancies 1 . L belkis births 1 . * Surgical History: A ppendectomy 1985, Breast Reduction 1998. * Hospitalization/Major Diagno stic Procedure: d enies . * Family History: Mother-melanoma, stroke, thyroid disease Father-lung cancer, stroke. * Social History: A lcohol Use Patient d oes not use alcohol T obacco Status Patient is a non tobacco user * Medications: T aking Amitriptyline HCl 25 MG Tablet 1 tablet at bedtime Orally Once a day , Taking Atomoxetine HCl 60 MG Capsule 1 capsule in the morning Orally Once a day , Taking Metoprolol Succinate 25 MG Capsule ER 24 Hour Sprinkle 1 capsule Orally Once a day , Taking Sumatriptan Succinate 100 MG Tablet 1 tablet at least 2 hours between doses as needed Orally Twice a day , Discontinued Estradiol 0.025 MG/24HR Patch Twice Weekly APPLY 1 PATCH TOPICALLY TO THE SKIN 2 TIMES A WEEK , Discontinued Macrobid 100 MG Capsule 1 capsule with food Orally every 12 hrs , Discontinued Norethindrone 0.35 MG Tablet 1 tablet Orally Once a day , Discontinued Norethindrone 0.35 MG Tablet 1 tablet Orally Once a day , Discontinued Progesterone 100 MG Capsule TAKE 1 CAPSULE BY MOUTH EVERY DAY DIRECTED , Medication List reviewed and reconciled with the patient * Allergies: K eflex, Oxycodone. Objective: * Vitals: H t: 71 in, Ht-cm: 180.34 cm, Wt: 224 lbs, Wt-k.6 kg, BMI:31.24, Weight Change: -3 lbs, Body Surface Area: 2.25, BP:130/90. * Examination: G eneral Examination: Constitutional: a lert, NAD, pleasant, well developed and well nourished, cooperative. Derm/Integumentary: n ormal, no rash. HEENT: u nremarkable. Neck: s upple, no lymphadenopathy. Respiratory: c lear to auscultation bilaterally, no wheezes/rhonchi/rales. Heart: n o murmurs, regular rate and rhythm, RRR, no murmurs, rubs or gallops. Chest: normal . Gastrointestinal: n o masses palpated, no hepatosplenomegaly. Rectal: e xternal exam normal. Female Genitourinary: external genitalia - normal appearance, no lesions, vagina - pink, moist, no lesions or abnormal discharge, cervix - no discharge or lesions, no cervical motion tenderness, adnexa/parametrium - no masses or tenderness, uterus - nontender and normal size on palpation, urethral meatus - normal size and location, no prolapse, anus/perineum - two hyperpigmented lesions around the anus that appear consistent with a wart, bladder - no fullness, mass, tenderness or prolapse. Musculoskeletal: n ormal, non tender, normal strength and tone, normal alignment. Neurology: n on-focal exam. Hem/Lymph: n ormal. Endocrine: n ormal. Breasts: n ormal, no palpable masses bilaterally, no lumps felt on either side, nipples unremarkable, no drainage, no skin changes. Assessment: * Assessment: 1. W [facility] woman exam - Z01.419 (Primary) 2 . P erimenopausal - N95.1 Plan: * Treatment: 2. P erimenopausal Start Sprintec 28 Tablet, 0.25-35 MG-MCG, 1 tablet, Orally, Once a day skipping the placebo week, 84 days, 112, Refills 3, Notes to Pharmacist: Patient will be taking continuously so will need refills earlier. Notes: Patient has been having difficulties with hot flashes again. Patient still having cycles and can feel when she ovulates at times. Discussed stopping the patches and the Provera and the norethindrone pills that she is on and just using OCPs for the next year. Patient has no contraindications. Prescription has been sent * Follow Up: 1 Year (Reason: wwe) * Care Plan Details* * Sign off status: Completed true * Provider: Joselin MCDOWELL MD Date: 0 12/09/2023 Generated for Printi ng/Fakeng/eTransmitting on: 1 12:59 PM CDT History and Physical Notes * HPI (History of Present Illness) Category Sub-Category Detail Notes Category Not es Patient History 48 yo presenting for well woman exam. Menstrual cycles are regular. Patient is sexually active Contraception - Norethindrone Last mammogram was earlier this year Last colonoscopy was last year Last Pap was 09/05/2022 and NILM with HPV neg No concerns today. DO NOT USE First Point of Contact Screening Do you have any of the following symptoms? New symptoms over the past 7 days: none In the past 3 weeks, have yo u traveled either within the [place] or internationally? : No In the past 3 weeks, have yo u had close contact with someone who has traveled either within the [place] or internationally? : No Examination Category Sub-Category Detail Notes Category Not es Cardiology, General General Appearance: HEENT: Carotid Upstroke: JVD: Heart Sounds: Murmur, Click, Gallop: Lungs: Abdomen: Extremities: Peripheral Pulses: Constitutional: Gastroenterology: Resp/Pulmonology: General Examination HEENT: unremarkable Neck: supple, no lymphaden opathy Heart: no murmurs, regular rate and rhythm, RRR, no murmurs, rubs or gallops Respiratory: clear to auscultatio n bilaterally, no wheezes/rhonchi/rales Gastrointestinal: no masses palpated, no hepatosplenomegaly Constitutional: alert, NAD, pleasant , well developed and well nourished, cooperative Derm/Integumentary: normal, no rash Neurology: non-focal exam Breasts: normal, no palpable masses bilaterally, no lumps felt on either side, nipples unremarkable, no drainage, no skin changes Chest: normal Female Genitourinary: external genitalia - normal appearance, no lesions, vagina - pink, moist, no lesions or abnormal discharge, cervix - no discharge or lesions, no cervical motion tenderness, adnexa/parametrium - no masses or tenderness, uterus - nontender and normal size on palpation, urethral meatus - normal size and location, no prolapse, anus/perineum - two hyperpigmented lesions around the anus that appear consistent with a wart, bladder - no fullness, mass, tenderness or prolapse Musculoskeletal: normal, non tender, normal strength and tone, normal alignment Hem/Lymph: normal Rectal: external exam normal Endocrine: normal
--- OUTSIDE RECORDS SUMMARY | 2023-12-14 05:29 | XMS_ITS ---
Author Organization [facility] Physician Dannie davey Billing Info Address [address] [place] [address] Care Team Providers Care Undercover Cop Name Role Phone JEREMIAS LISA Unavailable [phone] REASON FOR VISIT RX not received Medications Medication SIG (Take, Route, Frequency, Duration) Notes Start Date End Date Status Estrace 0.1 MG/GM 1 gram Vaginal Daily at bedtime for 2 weeks and then twice weekly for 60 day(s) 12/14/2023 Active Sprintec 28 0.25-35 MG-MCG 1 tablet Orally Once a day skipping the placebo week for 84 days Patient will be taking continuously so will need refills earlier 12/09/2023 Active Encounters Encounter Location Date Provider Diagnosis [id number] [facility] [address] [address] 12/14/2023 LISA MCDOWELL Perimenopausal N95.1 Assessments Encounter Date Diagnosis (ICD Code) Assessment Notes Treatment Notes Treatment Clinical Notes Section Notes 12/14/2023 Perimenopausal (ICD-10 - N95.1) Plan Of Treatment Medication Medication Name Sig Start Date Stop Date Notes Estrace 0.1 MG/GM 1 gram Vaginal Daily at bedtime for 2 weeks and then twice weekly for 60 day(s) 12/14/2023 Sprintec 28 0.25-35 MG-MCG 1 tablet Orally Once a day skipping the placebo week for 84 days 12/09/2023 Patient will be taki ng continuously so will need refills earlier Progress Notes * Winsome COKER KDOB: 5 (48 yo F)Acc No.[id number]:12/14/2023 Patient: Winsome GAINES :1975 A ge:48 Y S ex:Female Address:[address] [place] [address] * Refills Refill Sprintec 28 Tablet, 0.25-35 MG-MCG, Orally, 112, 1 tablet, Once a day skipping the placebo week, 84 days, Refills=3 Start Estrace Cream, 0.1 MG/GM, Vaginal, 60 grams, 1 gram, Daily at bedtime for 2 weeks and then twice weekly, 60 day(s), Refills=6 * true * Date: Generated for Ashley hwang/Rancho/Blanquita on: 12:59 PM CDT
[2025-02-24 11:33] VITALS: BP 118/76; PULSE 72; TEMP 36.6; O2SAT 100; BMI 28.5
--- NOTE | 2025-02-24 11:33 | A.OFFPC_ITS ---
Vital Signs 02/24/25 11:33 Height 6 ft 1 in Weight 216 lb BMI 28.5 BP 118/76 Blood Pressure Location Lt brachial Position Sitting Pulse 72 Pulse Source Pulse Oximeter Temp 97.9 F Temp Source Oral Pulse Oximetry (%) 100 Intake Visit Reasons: Pre op /cataract Account Assistant Required: No Accompanied by: Self / Same As Patient Allergies cephalexin (From Keflex) Allergy (Mild, Verified 02/24/25 11:49) Rash oxycodone Allergy (Mild, Verified 02/24/25 11:49) Rash Medication List - Last Reconciled 02/24/25 by Samia Park, BINDERY MACHINE OPERATOR- albuterol sulfate 90 mcg/actuation (Ventolin HFA) 2 puffs inhalation Q6H PRN amitriptyline 25 mg PO BEDTIME atomoxetine 100 mg PO QAM budesonide-formoterol 80-4.5 mcg/actuation 2 puffs inhalation ONCE estradiol (Lyllana) 1 patch topical 2XW nebivolol 20 mg PO DAILY progesterone micronized 100 mg PO BEDTIME sumatriptan succinate take 1 tab at onset of headache; if no relief, may repeat 1 tab after at least 2 hrs; max = 2 tabs/24 hrs PO tirzepatide (weight loss) (Zepbound) 5 mg subcut QWEEK trazodone 50 mg PO BEDTIME tretinoin 0.1% 1 appl topical BEDTIME valacyclovir 1,000 mg PO DAILY 90 days Tobacco use date assessed: 01/09/25 Dental Screening Dental Screen Date: 01/09/25 HPI HPI Comments 2 History of Present Illness Details 49 y/o F with migraines, HTN, Asthma, AD D, insomnia, perimenopause, IBS, perimenopause, dust mite allergy s/p sinus surgery Social: , 1 child son age 16 Family history: melanoma (mother), polyps (father) Health Maintenance Colon 2022 [facility] referral Pap 2022 [facility] referral Mammo 08/2023 Colon referred to [facility] DEXA NA perimenopause Tdap 12/2024, Flu 02/24/25 Here today for preoperative clearance. Surgery Type: L cataract removal R eye will be on 04/03/25 Anesthesia Type: MAC Surgeon: Dr Gruber Date: 03/15/25 Any past surgical procedures: Y Any complications from anesthesia or in post-op period: Denies ASA or NSAID Use: Denies Current smoker: Denies Alcohol use: Denies Drug use: Denies METs: > 4 climb flight of stairs, golf, walk, yardwork Medical history: Asthma Y COPD N Obesity BMI 28.5 Start Zepbound 9 weeks ago Diabetes N SD < 6 weeks, unstable angina, CHF, severe valve disease N Testing EKG today NSR LAbs 10/25/24 WNL RCRI is Class 0 Risk Stratification: 0% Asthma well controlled. Exercise induced. HTN well controlled on BB Feels well. Review of Systems - Cardiovascular: Reports fast heart rat e; Denies heart attacks. - Respiratory: Reports asthma with exert ion; Denies frequent asthma attacks. - Neurological: Reports migraines, now r educed; Reports dizziness upon standing. - Musculoskeletal: Reports joint hypermo bility, recurrent swelling, and pain in the hand; Denies major joint dislocations. - Gastrointestinal: Reports IBS; Denies current significant abdominal pain. - Endocrine: Reports irregular sweating episodes. - Dermatologic: Reports skin smoothness; Denies recent rashes. - Hematologic/Lymphatic: Denies known an emia. Physical Exam General: Well developed, well nourished, in no acute distress. Appears stated age. Marfanoid habitus Head: Normocephalic, atraumatic. Eyes: Pupils are equal, round and reactive to light and accommodation. Conjunctivae are clear. Mouth: + PND There are no ulcers or lesions noted. No inflammation Neck: Supple, no adenopathy or thyromegaly. Lungs: Clear to auscultation bilaterally. No rales, rhonchi or wheeze noted. Good air flow in all hester. Heart: Regular rate and rhythm. No murmurs, click, rubs or gallops are noted. Tachycardic w/ sitting to standing Pulses: Peripheral pulses are equal and palpable bilaterally. Feet dusky w/ dependence. Neurologic: Gait and station normal. Cranial Nerves 2-12 intact. Motor strength grossly symmetrical and intact. No sensory loss. Balance normal. Psych: Mood and affect appropriate. Skin: Diaphoretic, Smooth, doughy Discussion Notes I discussed the patient's current health status and management of her chronic conditions for the purpose of surgical clearance. I confirmed that her cardiovascular and respiratory conditions were stable and mentioned the need to withhold Zepbound two weeks prior to surgery due to aspiration risk during anesthesia. We discussed that there appear to be no contraindications for proceeding with cataract surgery based on current medical status.. I provided precautionary guidance regarding potential aspiration risks with her new medication and addressed questions about her allergy management. Patient was given time to ask questions. All questions were answered to their satisfaction. 1. Essential Hypertension - Continue Mebidilol. 2. Asthma - Maintain current inhaler regimen. 3. Pre-Op Clearance: Pt is cleared to pr oceed w/ surgery. Consent Patient was informed and verbally consented to the use of an ambient scribe for clinic note documentation during this visit. REPLACED BY [facility] Medical History HTN (hypertension) Hx of mammogram (~2023) IBS (irritable bowel syndrome) ADD (attention deficit disorder) Migraines Asthma Surgical History Hx of colonoscopy (~2022) Hx of appendectomy Family History Mother Asthma Cardiovascular disease Thyroid disorder Skin cancer (melanoma) Substance abuse Father HTN (hypertension) Lung cancer Social History Household Members: Spouse and Children Both parents involved: No Caregiver staying overnight: No Housing: House Are you a primary ambulatory care nurse to a significant other at home: Yes Do you presently have visiting nurse or other home services: No 75 years or older and lives alone: No Alcohol intake: never Patient Tobacco Use Status: Never used Tobacco e-Cigarette/Vaping Use: Never Used Second Hand Smoke Exposure: No service: No Current occupational status: employed 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 Current occupational exposures/hazards: No Cognitive needs: No Hearing needs: No Vision needs: Yes (wear glasses) Questionnaire Thrive Questionnaire Date Thrive assessed: 10/25/24 I am a: Patient What is your living situation today?: I have a steady place to live Within the past 12 months, did the food you bought not last and you didn't have the money to get more?: Never true Within the past 12 months, did you worry whether your food would run out before you got money to buy more?: Never true Do you have trouble paying for medicines?: No Do you have trouble getting transportation to medical appointments?: No Do you have trouble paying your heating and electricity bill?: No Do you have trouble taking care of your child, family member or friend?: No Do you have trouble with day-to-day activities such as bathing, preparing meals, shopping, managing finances, etc.?: No Are you currently unemployed and looking for a job?: No Are you interested in more education?: No Please select the resources that you would like help with: None Currently or been in a relationship where the following occur: No concerns reported THRIVE Score: 0 THOMAS-7 AMB Questionnaire THOMAS-7 Date THOMAS - 7 assessed: 10/25/24 Source: Developed by Drs. Ever Cherry, Maria Fernanda Maurer, Levy Sauceda and colleagues, with an educational ambar from [employer]. Physical exam (Primary Care) Vital Signs: Last Vital Signs Temp 97.9 F 02/24/25 11:33 Pulse 72 02/24/25 11:33 BP 118/76 02/24/25 11:33 Pulse Ox 100 02/24/25 11:33 BMI result Body Mass Index 28.5 Tobacco/Smoking Status: Tobacco use Status Tobacco use date assessed 01/09/25 02/24/25 11:37 Patient Tobacco Use Status Never used Tobacco 02/24/25 11:37 e-Cigarette/Vaping Use Never Used 02/24/25 11:37 Thrive Assessment: Date of Thrive Assessment Date Thrive assessed 10/25/24 02/24/25 11:37 Currently or been in a relationship where the following occur: No concerns reported Office Procedures EKG 41842-Hgztqxjnakhebnkaa, Complete Flu Questionnaire Does the patient have a severe egg allergy?: No Does the patient have severe life threatening allergies?: No Does the patient have a fever or illness today?: No Has the patient ever had Guillain-[place] Syndrome?: No Has the patient ever had any past reaction to a flu shot?: No Immunizations Fluarix [id number] (PF) 45 mcg (15 mcg x 3)/0.5 mL IM syringe Performing Provider: MONCHO Billings Performing Location: [facility] Administered by: Tejas Neal CMA on 02/24/25 11:48 Dose Route Admin Location Dispensed Lot Number Expiration Date NDC Firing Pin Gauger 0.5 mL IM Left Deltoid 0.5 mL [id number] 10/31/25 88516-379-15 [employer] VIS Given Date VIS Provided VIS Publication Date 02/24/25 Single Vaccine 24 Eligibility Eligibility Date Funding Source Not VFC Eligible 02/24/25 Private Results Reviewed Results Reviewed: RUN: 02/24/25 1202 PAGE 1 [facility] [address] [place] [id number] Nurse Special: Velasquez Yancey M.D. Specimen Inquiry Name: RiveraWinsome Ivory Age/Sex: 49/F : 1975 Unit#: [id number] Attend Dr: Samia Park Re10/25/24 Status: DEP REF Location: [facility] Disch: SPEC : [id number] JODY: 10/25/24 STATUS: COMP REQ : [id number] RECD: 10/25/[address]: Samia Park COMP: 10/25/24 ENTERED: 10/25/24 [facility] DR: ORDERED: CBC No Diff Test Result Flag Reference WBC 7.4 4.8-10.8 X10*3/uL RBC 4.26 4.20-5.50 X10*6/uL HGB 13.2 12.0-16.0 g/dl HCT 39.1 37.0-47.0 % MCV 91.8 80.0-98.0 fL MCH 31.0 27.0-33.0 pg MCHC 33.8 31.0-35.0 g/dl RDW 12.6 11.0-16.0 % PLT 331 160-400 X10*3/uL MPV 10.4 9.4-12.3 fL NRBC Pct Auto 0.0 0.0-0.2 /100WBC NRBC Abs Auto 0.000 0.0-0.012 X10*3/uL RUN: 02/24/25 1202 PAGE 1 [facility] [address] [place] [phone] Nurse Special: Velasquez Yancey M.D. Specimen Inquiry Name: Winsome Stafford Age/Sex: 49/F : 1975 Unit#: [id number] Attend Dr: Samia Park [facility] Re10/25/24 Status: DEP REF Location: [facility] Disch: SPEC : [id number] JODY: 10/25/24 STATUS: COMP REQ : [id number] RECD: 10/25/24-[address]: Samia Park [facility] COMP: 10/25/24-1223 ENTERED: 10/25/24 [facility] DR: ORDERED: CMP, IRON PROF, Ferritin, Lipid Panel, Vitamin D 25-OH, TSH Rflx Test Result Flag Reference Sodium 139 135-145 mmol/L Potassium 4.1 3.3-5.1 mmol/L CL 104 96-108 mmol/L CO2 27 22-29 mmol/L Gap 12 12-20 BUN 15 9-16 mg/dL Creat 0.76 0.5-1.4 mg/dL eGFR > 60 Chronic Kidney Disease: Estimated GFR < 60 mL/min/1.73m2 Severe Kidney Disease: Estimated GFR < 15 mL/min/1.73m2 Glucose, Random 79 60-115 mg/dL CA 9.7 8.4-10.2 mg/dL Iron 136 30-160 mcg/dL TIBC 310 228-428 mcg/dL Saturation 44 15-50 % UIBC 174 ug/dL Ferritin 104 10-250 ng/mL Total Bili 0.7 0.0-1.0 mg/dL AST (GOT) 36 H 5-31 U/L ALT (GPT) 41 H 0-31 U/L Coding Level of Care Code Est Pt Level 4 (91340) Complex EM visit Add On G2211 Diagnoses Pre-op exam Z01.818 Influenza vaccination administered at current visit Z23 Primary hypertension I10 Hypertension type: primary hypertension Cataract of both eyes, unspecified cataract type H26.9 Cataract type: unspecified Laterality: bilateral CPT Codes EKG - CPT: [id number]-[id number], Complete ([id number]) Assessment & Plan Assessment & Plan (1) Pre-op exam: Code(s): Z01.818 - Encounter for other preprocedural examination Plan: Medically cleared to proceed. (2) Influenza vaccination administered at current visit: Onset Date: ~02/24/25 Code(s): Z23 - Encounter for immunization Category: Medical (3) HTN (hypertension): Code(s): I10 - Essential (primary) hypertension Category: Medical Qualifiers: Hypertension type: primary hypertension Qualified Code(s): I10 - Essential (primary) hypertension (4) Cataract: Code(s): H26.9 - Unspecified cataract Category: Medical Qualifiers: Cataract type: unspecified Laterality: bilateral Qualified Code(s): H26.9 - Unspecified cataract Plan . Orders: Orders Influenza [id number] Immunization Today Z23 - Encounter for immunization
--- OUTSIDE RECORDS SUMMARY | 2025-02-24 13:59 | XMS_ITS | Patient Health Record ---
Author Organization [facility] Address [address] [address] Care Team Providers Care Slat Pickler Name Role Phone MARIAMA STEEL Unavailable [phone] Allergies Allergen (clinical drug ingredient) Drug/Non Drug [...] Problem Irritable bowel syndrome characterized by constipation (625155793) Irritable bowel syndrome with constipation (K58.1) Active confirmed Problem Migraine without aura, not refractory (337022187) Migraine without aura and without status migrainosus, not intractable (G43.009) Active confirmed Problem Seasonal allergy (946531483) Seasonal allergies (J30.2) Active confirmed Problem Mild intermittent asthma (477206752) Intermittent asthma without complication, unspecified asthma severity (J45.20) Active confirmed Problem Asthma without status asthmaticus (31766741) Asthma, unspecified asthma severity, unspecified whether complicated, unspecified whether persistent (J45.909) Active confirmed Plan Of Treatment Pending Test Test Name Order Date MAMMOGRAM, SCREENING 04/21/2023 Insurance Providers Payer Name Payer Address Payer Phone Subscriber Number Group Number Insured Name Patient Relationship to Insured Coverage Start Date Coverage End Date [employer] [address] [place] [address] [id number] Cameron Stafford Spouse - patient is the spouse of the insured Medical (General) History Medical History History ICD Code ibs constipation 2015 seasonal alleries tachycardia 2019 holter monitor [facility] Dr Chowdhry next appt 3 weeks wellbutrin iin 20s caused hallucination DONOT prescribe migraine [address] Rollins esophageal primo [address] Calin Prabhakar EGD DR Jiménez Surgical History Surgery Date(Month/Year) appy 1984 breast reduction 1998 polyp removal during colonoscopy 08/24
--- OUTSIDE RECORDS SUMMARY | 2025-02-24 13:59 | XMS_ITS | Patient Health Record ---
Author Organization [facility] Billing Info Address [address] [place] [id number] Care Team Providers Care Cooker Loader Name Role Phone LISA MCDOWELL Unavailable [phone] Allergies Allergen (clinical drug ingredient) Drug/Non Drug [...] URINALYSIS, DIP STICK/TABLET REAGENT; NON-AUTOMATED W/O MICROSCOPY (70093) 08/29/2022 Insurance Providers Payer Name Payer Address Payer Phone Subscriber Number Group Number Insured Name Patient Relationship to Insured Coverage Start Date Coverage End Date [facility] [employer] [address] [place] [address] [id number] ernesto Mendoza Spouse - patient is the spouse of the insured 4 Medical (General) History Medical History History ICD Code measles/chickenpox migraine headaches, no aura IBS-C Surgical History Surgery Date(Month/Year) Breast Reduction 1998 Appendectomy 1985 Hospitalization History Reason Date(Month/Year) denies
== END 2025-02-24 11:59 | disposition home or self-care (01) ==
LOC: HO.HMCFM 11:32
PROVIDERS: PCP Nurse Practitioner Family; Visit Provider Nurse Practitioner Family
DX: Z01.818 Encounter for other preprocedural examination (principal); Z23 Encounter for immunization; I10 Essential (primary) hypertension; H26.9 Unspecified cataract

== ENCOUNTER → 2025-02-24 11:31 | Outpatient (BNVA) | payer OTHER, SELFPAY | PROVIDERS: PCP Nurse Practitioner Family; Visit Provider Nurse Practitioner Family | DX: Z01.818 Encounter for other preprocedural examination (principal); I10 Essential (primary) hypertension; J45.909 Unspecified asthma, uncomplicated; H26.9 Unspecified cataract; Z23 Encounter for immunization | CPT/HCPCS: 90471; 90656; 93005 ==